=== PATIENT | female | born 1960 | race Caucasian/White ===

== ENCOUNTER 2023-12-14 22:36 | Outpatient (CLI) | payer OTHER, SELFPAY ==
[2023-12-14 19:13] LABS: Basophils # 0.2 K/mm3 (0-0.2); Basophils % 1.4 % (0.1-2.0); Eosinophils # 0.2 K/mm3 (0.0-0.4); Eosinophils % 2.2 % (0.1-12.0); Hemoglobin 14.1 g/dL (12.2-16.2); Lymphocytes # 5.7 K/mm3 (0.7-4.5); Lymphocytes % 50.9 % (10-50); Mean Corpuscular HGB Conc 32.8 g/dL (31.8-35.4); Mean Corpuscular Hemoglobin 32.5 pg (27.0-31.2); Mean Corpuscular Volume 98.9 fl (81-99); Mean Platelet Volume 9.4 fl (7.4-10.4); Monocytes # 0.6 K/mm3 (0.1-1.0); Monocytes % 5.4 % (1.7-9.3); Neutrophils # 4.5 K/mm3 (1.8-7.8); Neutrophils % 40.1 % (37.0-80.0); Platelet Count 397 K/mm3 (142-424); Red Blood Count 4.34 M/mm3 (4.20-5.40); Red Cell Distribution Width 13.1 % (11.5-17.5); White Blood Count 11.2 K/mm3 (4.8-10.8)
[2023-12-14 19:22] LABS: MANUAL DIFFERENTIAL MANUAL DIFFERENTIAL (MANUAL DIFF)
[2023-12-14 19:50] LABS: Chloride 112 mmol/L (98-107); Sodium 142 mmol/L (136-145)
[2023-12-14 19:51] LABS: Potassium 4.2 mmoL/L (3.5-5.1)
[2023-12-14 19:53] LABS: Alanine Aminotransferase 19 U/L (12-78); Albumin Level 4.5 g/dl (3.5-5.0); Albumin/Globulin Ratio 1.7 (1.1-1.8); Alkaline Phosphatase 80 U/L (38-126); Anion Gap 12.2 mEq/L (5-15); Aspartate Amino Transferase 27 U/L (14-36); Bilirubin,Total 0.4 mg/dl (0.2-1.3); Blood Urea Nitrogen 9 mg/dl (7-17); Calcium 9.7 mg/dl (8.4-10.2); Carbon Dioxide 22 mmol/L (22.0-30.0); Chol/HDL Ratio 5.6 (1-3.5); Cholesterol 242 mg/dl (140-200); Estimated Glomerular Filt Rate 73 ml/min (>60); GFR (African American) 88 ML/MIN (>60); Globulin 2.7 g/dL (1.3-3.2); Glucose 90 mg/dl (74-100); HDL Cholesterol 43 mg/dl (40-60); Iron 78 ug/dL (37-170); Total Protein,Serum 7.2 g/dl (6.3-8.2); Triglycerides 204 mg/dl (30-150); VLDL Cholesterol 41 mg/dL (0-40)
[2023-12-14 19:57] LABS: Hemoglobin A1C 5.2 % (4.0-6.0)
[2023-12-14 20:03] LABS: Total Iron Binding Capacity 302 ug/dL (265-497)
[2023-12-14 20:10] LABS: 25-OH Vitamin D, Total 16.1 ng/mL (30-100)
[2023-12-14 20:16] LABS: Eosinophils % 2 % (0-3); Lymphocytes % 56 % (10-50); Monocytes % 5 % (2-9); Neutrophils % 37 % (42-76); Total Cells Counted 100
[2023-12-14 20:18] LABS: Macrocytosis 1+; Platelet Estimate Normal
[2023-12-14 20:25] LABS: Thyroid Stimulating Hormone 3.34 uIU/mL (0.465-4.68)
[2023-12-14 20:29] LABS: Ferritin 48.4 ng/ml (11.1-264)
[2023-12-14 20:59] LABS: Vitamin B12 231 pg/mL (239-931)
[2023-12-14 21:08] LABS: Folate 4.31 ng/mL
[2023-12-16 08:12] LABS: Estradiol <5.0 pg/mL (0.0-54.7); FSH 92.7 mIU/mL (25.8-134.8); LH 46.5 mIU/mL (7.7-58.5)
[2023-12-25 13:10] LABS: Free Testosterone (Direct) 0.6 pg/mL (0.0-4.2); Testosterone, Total, LC/MS 21.4 ng/dL (7.0-40.0)
== END 2023-12-14 23:59 ==
LOC: LAB.DROPOF 22:37
PROVIDERS: PCP Student in an Organized Health Care Education/Training Program; Visit Provider Student in an Organized Health Care Education/Training Program
DX: I10 Essential (primary) hypertension (principal); R53.83 Other fatigue; E55.9 Vitamin D deficiency, unspecified; E53.8 Deficiency of other specified B group vitamins; Z79.899 Other long term (current) drug therapy
CPT/HCPCS: 80053; 80061; 82306; 82607; 82626; 82670; 82728; 82746; 83001; 83002; 83036; 83540; 83550; 84443; 85007; 85025

== ENCOUNTER 2023-12-27 14:08 | Outpatient (CLI) | payer OTHER, SELFPAY ==
--- NOTE | 2023-12-27 14:08 | MM_ITS ---
PROCEDURE INFORMATION: Exam: Bilateral Screening 3D Mammography Exam date and time: 12/27/2023 2:04 PM Age: 63 years old Clinical indication: Screening mammogram TECHNIQUE: Imaging protocol: Bilateral Screening tomosynthesis and 2D mammography including computer-aided detection (CAD) when performed. COMPARISON: MG SCREENING COLBY MAMMOGRAM 12/29/2019 8:12 AM FINDINGS: MAMMOGRAPHY: Breast composition: There are scattered areas of fibroglandular density. Mass: None. Architectural distortion: No new or suspicious architectural distortion. Calcifications: No new or suspicious calcifications are present Asymmetric density: No new or suspicious asymmetric density is present Skin thickening: None. Axillary adenopathy: None. Other findings: Stable postoperative findings bilaterally IMPRESSION: No mammographic evidence of malignancy. Recommend annual screening mammography unless otherwise clinically indicated. ASSESSMENT: BI-RADS category 2: Benign
== END 2023-12-27 23:59 ==
LOC: RAD 14:08
PROVIDERS: PCP Student in an Organized Health Care Education/Training Program; Visit Provider Student in an Organized Health Care Education/Training Program
DX: Z12.31 Encounter for screening mammogram for malignant neoplasm of breast (principal)
CPT/HCPCS: 77063; 77067

== ENCOUNTER 2023-12-28 19:57 | Outpatient (CLI) | payer OTHER, SELFPAY ==
[2023-12-30 11:55] LABS: Homocyst(e)ine 24.8 umol/L (0.0-17.2)
[2024-01-01 17:34] LABS: Intrinsic Factor Abs, Serum 1.1 AU/mL (0.0-1.1)
[2024-01-06 09:40] LABS: Methylmalonic Acid 526 nmol/L (0-378)
== END 2023-12-28 23:59 ==
LOC: LAB.DROPOF 19:57
PROVIDERS: PCP Student in an Organized Health Care Education/Training Program; Visit Provider Student in an Organized Health Care Education/Training Program
DX: E53.8 Deficiency of other specified B group vitamins (principal)
CPT/HCPCS: 83090; 83921; 86340

== ENCOUNTER 2024-01-08 06:39 | Outpatient (CLI) | payer OTHER, SELFPAY ==
--- NOTE | 2024-01-08 07:04 | CT_ITS ---
FINAL REPORT TECHNIQUE: Thin section axial images were obtained through the lungs using a low-dose technique per lung cancer screening protocol. Reconstruction images were obtained using the axial data. Exam was performed using dose reduction technique. CLINICAL HISTORY: lung cancer screening smoker, 1 ppd x 44 years COMPARISON: None FINDINGS: CTDLvol: 2.90 DLP: 96.38 Current smoker 44 pack year history Lungs: There are areas of atelectasis at the left lung base. There is a groundglass nodule in the posterior right upper lobe measuring 10 mm. There is evidence of prior granulomatous disease. Lungs are otherwise normal. Lymph nodes: No thoracic lymphadenopathy. Mediastinum: Heart size is normal. Pleura/pericardium: No pleural or pericardial effusion. Other: No acute abnormality in the upper abdomen. IMPRESSION: 10 mm groundglass nodule posterior right upper lobe. Lung RADS: 2 Recommendation: 12-month follow-up low-dose CT. Reviewed, Interpreted and Dictated by Soila Jane MD Transcribed by Clarisse Ly Authenticated and [facility]
--- NOTE | 2024-01-08 07:15 | CT_ITS ---
APPROVED REPORT Card Decorator: CLINICAL INDICATION Chest Pain TECHNIQUE Image Acquisition: A 128 slice MDCT scanner (NextNinea View) was used for data acquisition. A noncontrast coronary calcium scan was performed. A CT attenuation threshold of 130 Hounsfield units (HU) was used for the detection of calcium in contiguous voxels of 1 sq mm in area to be counted as individual lesions. Bolus tracking in the ascending aorta with a threshold of 180 HU was performed. Immediately afterwards, ECG synchronized cardiac CT was then performed from the cardiac base to apex using retrospective gating with ECG tube current modulation. A total of 85 mL of Isovue 370 mg/mL contrast medium was administered at 5 mL/sec followed by a saline flush using a biphasic injection protocol. A tube voltage of 120 KVp was used. The patient received the following medications prior to the cardiac CT. 0.8 mg of sublingual nitroglycerin The average heart rate at the time of acquisition was 58 bpm and regular. Image Reconstruction Transaxial images were reconstructed at 0.67 mm slide thickness. Data was reviewed interactively on an advanced workstation capable of 2 and 3-dimensional displays in all conventional reconstruction formats, including multiplanar reformations, maximum intensity projections, curved multiplanar reformations, and volume rendered reconstructions. When applicable, selected routine images describing the relevant coronary anatomy and pathology were saved and sent to PACS. Complications None Technical Quality Overall image quality was suboptimal due to significant motion. Coronary artery opacification was adequate. Total DLP (Dose-Length Product) is 1392.3 mGy-cm. The reported value represents the total of one or more individual components during the CT acquisition of this date and at this time, and as such, the same value may appear in more than one CT report depending on the interpreting/reporting physicians. COMPARISON None FINDINGS CT Coronary Calcium Scoring LMA (Left Main Artery) = 0 LAD (Left Anterior Descending) = 0 LCX (Left Coronary Circumflex) = 0 RCA (Right Coronary Artery) = 0 Total Calcium Score = 0 using the AJ-130 method. The interpretation of the calcium heart score is based on the following continuum*: 0 = no calcified plaque detected (risk of coronary artery disease is very low ??? less than 5%) 1-10 = calcium detected in extremely minimal levels (risk of coronary diseases is still low ??? less than 10%) 11-100 = mild levels of plaque detected with certainty (mild or minimal narrowing of heart arteries is likely) 101-400 = definite,at least moderate levels of plaque detected (relatively high risk of a heart attack within 3-5 years) >401-999 = extensive levels of plaque detected (high risk of heart attack, high levels of vascular disease are present, high likelihood of at least one significant coronary narrowing) *The calcium heart score quantifies the burden of coronary calcification/plaque in the coronary arteries. The calcium heart score is not able to evaluate the presence or burden of non-calcified (i.e. soft) plaque. There is no identifiable calcification in the aortic valve, mitral annulus or mitral valve, pericardium, or myocardium. Coronary CT Angiography The coronary arterial system is right dominant. Quantitative Stenosis Grading: Left Main (LM): The left main originates normally from the left sinus of Valsalva. The LM bifurcates into the left anterior descending artery and left circumflex artery. The LM is patent with no evidence of atherosclerosis. Left Anterior Descending (LAD) and Diagonal Branches: The LAD gives off 3 diagonal branches. The LAD and its branches are patent with no evidence of atherosclerosis. There is no evidence of LAD-myocardial bridge. Left Circumflex (LCX) and Obtuse Marginals (OM): The LCX gives off 1 Obtuse Marginal (OM) branch(es). There is significant motion artifact in the mid and distal LCx, but grossly the visualized segments of the LCX and its branches are patent with no evidence of atherosclerosis. Right Coronary Artery (RCA): The RCA originates normally from the right sinus of Valsalva. The RCA gives off a posterior descending artery (PDA) and posterolateral (PL) branches. The RCA and its branches are patent with no evidence of atherosclerosis. Non-Coronary Cardiac Findings: Analysis of the left ventricular (LV) structure and function was performed after 3-D reconstruction of the LV from axial images, with user-corrected automatic contouring for assessment of LV volumes and user-defined reconstruction from oblique planes for measurement of 3-D cardiac structure and function. -The left ventricle systolic function is normal (LVEF 73%) -There is incomplete opacification of the distal left atrial appendage. This likely represents no contrast flow into the region, but true filling defect cannot be entirely ruled out. Two right pulmonary veins and two left pulmonary veins drain normally into the left atrium. -No pericardial thickening or calcification. -Central and branch pulmonary arteries in the [id number] are unremarkable. -Thoracic aorta within the visualized thoracic aortic-branches in the [id number] is unremarkable. Extracardiac Structures No significant extra-cardiac findings. Note, however, that this study is focused on the cardiac findings. IMPRESSION -Suboptimal image quality due to significant motion. -Absence of coronary calcification with an Agatston score = 0 using the AJ-130 method. -No evidence of significant flow-limiting atherosclerosis of the coronary arteries. -CAD-RADS 0. Management recommendations per ACC/AHA guidelines*, as clinically appropriate. *Recommendations: CAD RADS 0: Reassurance. Consider non-atherosclerotic causes of chest pain. CAD RADS 1: Consider non-atherosclerotic causes of chest pain. Consider preventive therapy and risk factor modification. CAD RADS 2: Consider non-atherosclerotic causes of chest pain. Consider preventive therapy and risk factor modification, particularly for patients with nonobstructive plaque in multiple segments. CAD RADS 3: Consider further functional testing. Consider symptom-guided anti-ischemic and preventive pharmacotherapy as well as risk factor modification per published guideline statements. CAD RADS 4A: Consider further functional testing or invasive coronary angiography with revascularization per published guideline statements. Consider symptom-guided anti-ischemic and preventive pharmacotherapy as well as risk factor modification per published guideline statements. CAD RADS 4B: Invasive coronary angiography recommended with revascularization per published guideline statements. Consider symptom-guided anti-ischemic and preventive pharmacotherapy as well as risk factor modification per published guideline statements. CAD RADS 5: Consider invasive angiography and/or viability assessment with revascularization per published guideline statements. Consider symptom-guided anti-ischemic and preventive pharmacotherapy as well as risk factor modification per published guideline statements. CRITICAL RESULT None COMMUNICATION Per this written report The coronary and cardiac findings of this CCTA were reviewed, reported, and signed by Silvestre Briones MD (Senior Front End Engineer) Conclusion Electronically signed by : Hillary Briones MD 01/09/2024 10:50:20
--- NOTE | 2024-01-08 07:49 | CA_ITS ---
APPROVED REPORT EXAM: Comprehensive 2D, Doppler, and color-flow Echocardiogram Wringer Machine Operator: Paige Astorga CRT Ht: 5 ft 0 in Wt: 168lbs BSA: 1.73 BP: 158/88 mmHg Indications: Chest Pain, CAD, Hyperlipidemia, Hypertension/HDD, aneurysm, smoker 2D Dimensions LA Volume 26.90 mL LA Volume Index 15.10 mL/m2 (M/F) 16-34 M-Mode Dimensions RVDd 2.32 cm (0.9-2.6) LA Diam 2.74 cm (1.9-4.0) LVDd 4.60 cm (3.5-5.7) LVDs 2.68 cm (3.5-5.7) IVSd 1.71 cm (0.6-1.1) PWd 0.50 cm (0.6-1.1) EF (Teich) 72.80% FS 41.70% EDV (Teich) 97.30 mL TAPSE 1.08 (<1.7) ESV (Teich) 26.50 mL LV Diastology E Decel Time 200 (160-240 msec) E/A Ratio 1.06 MED A' 7.40 cm/s LAT A' 12.80 cm/s Aortic Valve AI PHT 919.00 ms AO Peak GR. 6.40 mmHg Mitral Valve MV A Velocity 93.0 (40-130 cm/s) E/A Ratio 1.06 Pulmonary Valve PV Peak Velocity 113.0 (50-150 cm/s) Tricuspid Valve TR P. Velocity 213.00 cm/s Left Ventricle The left ventricle is normal size. The left ventricular systolic function is normal. The left ventricular ejection fraction is within the normal range. There is increased LV wall thickness. There is normal LV segmental wall motion. The left ventricular diastolic function is normal. LVEF is 55%. Right Ventricle The right ventricle is normal size. The right ventricular systolic function is normal. Atria The left atrium size is normal. The right atrium size is normal. There is no Doppler evidence of interatrial shunt. Aortic Valve The aortic valve is mildly thickened. There is no aortic valvular stenosis. Mild aortic regurgitation. Mitral Valve The mitral valve is normal in structure. No evidence of mitral valve stenosis. There is no mitral valve regurgitation noted. Tricuspid Valve The tricuspid valve leaflets are thin and pliable. Trace tricuspid regurgitation. There is insufficient TR jet to estimate RVSP. Pulmonic Valve The pulmonary valve is normal in structure. Trace pulmonic regurgitation. Great Vessels The aortic root is normal in size. The ascending aorta is normal in size. IVC is normal in size and collapses >50% with inspiration. Pericardium There is no pericardial effusion. Other Information Study Quality: Fair Conclusion Normal biventricular systolic function. Mild AI. Electronically signed by : Hillary Briones MD 01/10/2024 10:44:29
[2024-01-08 08:33] VITALS: BMI 32.2
[2024-01-08 08:56] VITALS: BP 150/78; PULSE 59; RESP 16; O2SAT 99
[2024-01-08] MEDS: NITROGLYCERIN 0.4MG SL TABLET SL (08:56)
[2024-01-08 09:00] VITALS: BP 136/72; PULSE 60; RESP 16; O2SAT 98
[2024-01-08 09:04] VITALS: BP 141/74; PULSE 60; RESP 16; O2SAT 98
[2024-01-08] MEDS: 0.9 % SODIUM CHLORIDE 50 ML VIAL IV (09:12)
[2024-01-08] MEDS: SODIUM CHLORIDE 0.9% 10ML SYR (RAD ONLY) 10 ML IV (09:12)
[2024-01-08] MEDS: IOPAMIDOL-370 (76%);100ML BOTTLE 85 ML IV (09:12)
== END 2024-01-08 09:15 | disposition home or self-care (01) ==
PROVIDERS: PCP Student in an Organized Health Care Education/Training Program; Visit Provider Student in an Organized Health Care Education/Training Program
DX: F17.210 Nicotine dependence, cigarettes, uncomplicated (principal); Z12.2 Encounter for screening for malignant neoplasm of respiratory organs; I20.89 Other forms of angina pectoris; I10 Essential (primary) hypertension; E78.5 Hyperlipidemia, unspecified; Z82.49 Family history of ischemic heart disease and other diseases of the circulatory system
CPT/HCPCS: 71271; 75571; 75574; 93306; Q9967

== ENCOUNTER 2024-03-14 18:00 | Outpatient (CLI) | payer OTHER, SELFPAY ==
[2024-03-14 18:37] LABS: Basophils # 0.1 K/mm3 (0-0.2); Basophils % 0.8 % (0.1-2.0); Eosinophils # 0.2 K/mm3 (0.0-0.4); Eosinophils % 1.2 % (0.1-12.0); Hematocrit 44.6 % (37.0-47.0); Hemoglobin 14.1 g/dL (12.2-16.2); Lymphocytes # 5.7 K/mm3 (0.7-4.5); Lymphocytes % 36.1 % (10-50); Mean Corpuscular HGB Conc 31.6 g/dL (31.8-35.4); Mean Corpuscular Hemoglobin 32.3 pg (27.0-31.2); Mean Corpuscular Volume 102.4 fl (81-99); Mean Platelet Volume 8.9 fl (7.4-10.4); Monocytes # 0.8 K/mm3 (0.1-1.0); Monocytes % 4.9 % (1.7-9.3); Neutrophils # 9.1 K/mm3 (1.8-7.8); Neutrophils % 57.1 % (37.0-80.0); Platelet Count 365 K/mm3 (142-424); Red Blood Count 4.36 M/mm3 (4.20-5.40); Red Cell Distribution Width 13.6 % (11.5-17.5); White Blood Count 15.9 K/mm3 (4.8-10.8)
[2024-03-14 18:38] LABS: MANUAL DIFFERENTIAL MANUAL DIFFERENTIAL (MANUAL DIFF)
[2024-03-14 18:56] LABS: Alanine Aminotransferase 18 U/L (12-78); Albumin Level 4.7 g/dl (3.5-5.0); Albumin/Globulin Ratio 1.9 (1.1-1.8); Alkaline Phosphatase 69 U/L (38-126); Anion Gap 11.9 mEq/L (5-15); Aspartate Amino Transferase 26 U/L (14-36); Bilirubin,Total 0.5 mg/dl (0.2-1.3); Blood Urea Nitrogen 12 mg/dl (7-17); Calcium 9.8 mg/dl (8.4-10.2); Carbon Dioxide 22 mmol/L (22.0-30.0); Chloride 111 mmol/L (98-107); Chol/HDL Ratio 4.9 (1-3.5); Cholesterol 312 mg/dl (140-200); Estimated Glomerular Filt Rate 63 ml/min (>60); GFR (African American) 77 ML/MIN (>60); Globulin 2.5 g/dL (1.3-3.2); Glucose 95 mg/dl (74-100); HDL Cholesterol 64 mg/dl (40-60); Potassium 3.9 mmoL/L (3.5-5.1); Sodium 141 mmol/L (136-145); Total Protein,Serum 7.2 g/dl (6.3-8.2); Triglycerides 291 mg/dl (30-150); VLDL Cholesterol 58 mg/dL (0-40)
[2024-03-14 19:04] LABS: Hemoglobin A1C 5.7 % (4.0-6.0)
[2024-03-14 19:25] LABS: 25-OH Vitamin D, Total 70.3 ng/mL (30-100)
[2024-03-14 20:00] LABS: Folate > 20.00 ng/mL; Vitamin B12 558 pg/mL (239-931)
[2024-03-14 20:06] LABS: Eosinophils % 5 % (0-3); Lymphocytes % 34 % (10-50); Macrocytosis 1+; Monocytes % 3 % (2-9); Neutrophils % 58 % (42-76); Platelet Estimate Normal; Total Cells Counted 100
[2024-03-14 20:29] LABS: Iron 119 ug/dL (37-170); Total Iron Binding Capacity 306 ug/dL (265-497)
[2024-03-14 20:42] LABS: Ferritin 58.1 ng/ml (11.1-264)
== END 2024-03-14 23:59 | disposition home or self-care (01) ==
LOC: LAB.DROPOF 03-15 09:12
PROVIDERS: PCP Student in an Organized Health Care Education/Training Program; Visit Provider Student in an Organized Health Care Education/Training Program
DX: I10 Essential (primary) hypertension (principal); E53.8 Deficiency of other specified B group vitamins; E55.9 Vitamin D deficiency, unspecified; E78.5 Hyperlipidemia, unspecified; E66.09 Other obesity due to excess calories; Z68.32 Body mass index [BMI] 32.0-32.9, adult; Z78.9 Other specified health status
CPT/HCPCS: 80053; 80061; 82306; 82607; 82728; 82746; 83036; 83540; 83550; 85007; 85025

== ENCOUNTER 2024-03-21 06:39 | Day surgery (SDC) | payer OTHER, SELFPAY ==
[2024-03-19 13:46] VITALS: BMI 33.2
--- NOTE | 2024-03-21 06:50 | HMH.SCOPE ---
Procedure: Date: 03/21/24 Patient Date of :: 1960 Procedure Performed:: Total colonoscopy to terminal ileum Indications:: Patient is a 63-year-old female who presents for colonoscopy. She has undergone previous colonoscopy and states that she is past due. She has a family history of colon cancer in her extended family. Her paternal grandfather and several members on that side of her family have had colon cancer. Previous colonoscopies have been in [place]. She is also previously had hemorrhoid surgery by Dr. Arun De La Fuente. She states that she was told by him that her lower colon is lazy and he had considered possible resection. Performing Provider:: Cedric Gonzalez MD Referring Provider:: Dione Nunes Sedation:: MAC sedation Procedure:: Patient history was obtained and appropriate physical examination was performed. Patient's medications and allergies were reviewed. Informed consent was obtained after explaining the benefits, alternatives, and risks of the procedure including, but not limited to, bleeding, perforation, missed lesions, and adverse reaction to anesthesia medications. Patient was transported to endoscopy procedure room. Patient was connected to monitoring devices. Throughout the procedure the patient's blood pressure, pulse, and oxygen saturations were monitored continuously. Patient identification and planned procedure were verified by the staff. Patient was positioned in lateral decubitus position. Digital anorectal exam was performed. Variable stiffness Olympus colonoscope was inserted and advanced under direct visualization to the cecum. Adequacy of the colonic preparation was noted. The colonoscope was advanced a short distance into the terminal ileum. The colonoscope was then slowly withdrawn while carefully examining the color, texture, anatomy, and integrity of the mucosoa circumferentially. Within the rectum retroflexion was performed. Colonoscope was then withdrawn. . Impression: Colonic preparation was good. There was some minor redundancy of the sigmoid colon. There were no obvious polyps, masses, or diverticuli. In the distal rectum there was visible submucosal staple line likely from previous PPH hemorrhoidectomy. . Findings:: Findings consistent with previous PPH hemorrhoidopexy Minimal internal hemorrhoids Recommendations:: Given family history 5 years repeat Complications:: None immediate Estimated blood obtained (mL): 0 Colonoscopy Component Colonoscopy Component Was a colonoscopy performed during today's procedure?: Yes Recommended follow up colonoscopy of at least 10 years?: No If no, follow up colonoscopy recommended in ___ years?: 5 Reason for not recommending >/= 10 yr follow-up interval?: see above
[2024-03-21 07:00] VITALS: BP 139/84; PULSE 70; RESP 18; TEMP 36.2; O2SAT 98
[2024-03-21] MEDS: LACTATED RINGERS 1000ML 1,000 ML 25 ML IV (07:13)
[2024-03-21 07:25] VITALS: O2SAT 98
--- NOTE | 2024-03-21 07:42 | P.PNANES_ITS ---
[facility] Disclaimer: The information contained in this section may have been updated after the patient was seen, as this information can be updated by other users. Medical History HTN (hypertension) HLD (hyperlipidemia) Family history of coronary artery disease Atypical angina Hemorrhoids Nerve pain Detachment of triangular fibrocartilage Foot fracture, left Colon polyps TFCC (triangular fibrocartilage complex) injury Anxiety and depression Migraines Aneurysm Mass of ovary Abnormal Pap smear of cervix Surgical History Hx of tonsillectomy H/O dilation and curettage History of endoscopic sinus surgery H/O blepharoplasty History of hysterectomy H/O removal of cyst H/O right breast biopsy H/O left breast biopsy S/P cervical spinal fusion H/O hemorrhoidectomy Family History Other Anemia Cancer Coronary artery disease Heart attack Hyperlipidemia Hypertension Stroke Thyroid disorder Social History (Updated 03/21/24 @ 07:02 by Portia Sarabia RN) Smoking Status: Current every day smoker tobacco type: cigarettes packs per day: 1 smoking status start date: 1979 smoked: 44 alcohol intake: current alcohol intake frequency: holidays/special occasions only substance use type: denies use current occupational status: disabled Travel in the last 8 weeks: None caffeine: Yes [facility] Anesthesia Checklist Patient Identification Patient Identification: Arm Band Structural Data Admitted From: Home Planned Operative Procedure/s: Colonoscopy Consent for Planned Operative Procedure(s) Verified: Yes Verified Documents: Surgical Consent and History and Physical NPO Status Verified Time NPO: 00:00 Additional verifications Anesthesia Reactions: No Hx Blood Transfusions: No Blood Transfusion Reaction: No Airway Assessment Mallampati Score:: Class II C-Spine Mobility Assessed: Yes TMJ Mobility Assessed: Yes Dentition: Dentures-good fit Neurological Assessment Level of Consciousness: Awake and Alert Anesthesia Plan Anesthesia Risk discussed: Yes Anesthesia Plan: Verified ASA Class: II Anesthesia Type: MAC
[2024-03-21 07:55] VITALS: BP 120/61; PULSE 62; RESP 18; TEMP 36.2; O2SAT 97
[2024-03-21 08:05] VITALS: BP 128/85; PULSE 68; RESP 18; O2SAT 97
[2024-03-21 08:15] VITALS: BP 122/68; PULSE 61; RESP 18; O2SAT 97
[2024-03-21 08:28] VITALS: BP 127/64; PULSE 61; RESP 18; O2SAT 97
== END 2024-03-21 08:35 | disposition home or self-care (01) ==
PROVIDERS: PCP Student in an Organized Health Care Education/Training Program; Visit Provider Surgery
PROC: 0DJD8ZZ Inspection of Lower Intestinal Tract, Via Natural or Artificial Opening Endoscopic (ICD-10-PCS; CPT 45378; principal; 2024-03-21 07:30)
DX: Z12.11 Encounter for screening for malignant neoplasm of colon (principal); Z86.010 Personal history of colon polyps; Z80.0 Family history of malignant neoplasm of digestive organs; K64.8 Other hemorrhoids
CPT/HCPCS: 45378

== ENCOUNTER 2024-03-25 08:48 | Outpatient (CLI) | payer OTHER, SELFPAY ==
--- NOTE | 2024-03-25 08:48 | US_ITS ---
PROCEDURE INFORMATION: Exam: US Left Breast, Complete US Right Breast, Complete Exam date and time: 03/25/2024 9:31 AM Age: 63 years old Clinical indication: : Soreness and lump, or swelling; right TECHNIQUE: Imaging protocol: Complete ultrasound of all four quadrants of the left breast and the retroareolar regions, including ultrasound of the axilla when performed. Complete ultrasound of all four quadrants of the right breast and the retroareolar regions, including ultrasound of the axilla when performed. COMPARISON: MG MM DIG SCREENING MAMM BI W/CAD 12/27/2023 2:04 PM FINDINGS: ULTRASOUND: Breast ultrasound findings: Sonographic images of the right breast including the retroareolar region, all 4 quadrants and the axilla do not demonstrate any solid or cystic masses. Persists replaced over a prominent fat lobule in the region of palpable concern in the right 2 o'clock axis 8 cm from the nipple. It is less likely but possible the finding reflects a benign lipoma. No architectural distortion or acoustical shadowing. No skin thickening or axillary adenopathy. Review of the patient's most recent mammogram dated 12/27/2023 did not demonstrate any suspicious findings IMPRESSION: Palpable abnormality in the right breast corresponds both mammographically and sonographically to normal adipose tissue structures versus a possible benign lipoma. There is no mammographic evidence of malignancy. Further evaluation of a palpable abnormality should be based on clinical grounds regardless of radiographic findings or lack thereof. Annual mammographic screening is recommended unless otherwise clinically indicated. ASSESSMENT: BI-RADS Category 2: Benign.
== END 2024-03-25 23:59 | disposition home or self-care (01) ==
LOC: RAD 08:48
PROVIDERS: PCP Student in an Organized Health Care Education/Training Program; Visit Provider Student in an Organized Health Care Education/Training Program
DX: N63.10 Unspecified lump in the right breast, unspecified quadrant (principal); N63.20 Unspecified lump in the left breast, unspecified quadrant
CPT/HCPCS: 76641

== ENCOUNTER → 2024-05-29 08:54 | Outpatient (CLI) | payer OTHER, SELFPAY | LOC: SL 08:57 | PROVIDERS: PCP Student in an Organized Health Care Education/Training Program; Visit Provider Student in an Organized Health Care Education/Training Program | DX: G47.33 Obstructive sleep apnea (adult) (pediatric) (principal) | CPT/HCPCS: G0399 ==

== ENCOUNTER 2024-08-26 11:55 | Outpatient (CLI) | payer OTHER, SELFPAY ==
[2024-08-26 12:54] VITALS: BMI 31.8
--- NOTE | 2024-08-26 12:55 | ECG_ITS ---
APPROVED REPORT Exam: Resting ECG HR:74 bpm ECG Measurements Heart Rate 74 AXES MO 94 P -73 QRSd 83 QRS 43 QT 398 T 43 QTc [address] DEVIATION AND MODERATE T-WAVE ABNORMALITY, CONSIDER ANTERIOR ISCHEMIA [-0.1+ mV T-WAVE IN V3/V4] ABNORMAL ECG UNCONFIRMED REPORT Electronically signed by : Giuseppe Griffiths MD 08/27/2024 09:21:08
[2024-08-26 13:36] LABS: Basophils # 0.1 K/mm3 (0-0.2); Eosinophils # 0.2 K/mm3 (0.0-0.4); Eosinophils % 2.5 % (0.1-12.0); Hematocrit 39.4 % (37.0-47.0); Hemoglobin 13.8 g/dL (12.2-16.2); Lymphocytes # 4.4 K/mm3 (0.7-4.5); Lymphocytes % 51.2 % (10-50); Mean Corpuscular Hemoglobin 33.2 pg (27.0-31.2); Mean Corpuscular Volume 94.7 fl (81-99); Mean Platelet Volume 8.8 fl (7.4-10.4); Monocytes # 0.5 K/mm3 (0.1-1.0); Monocytes % 5.5 % (1.7-9.3); Neutrophils # 3.5 K/mm3 (1.8-7.8); Neutrophils % 39.8 % (37.0-80.0); Platelet Count 350 K/mm3 (142-424); Red Blood Count 4.16 M/mm3 (4.20-5.40); Red Cell Distribution Width 13.6 % (11.5-17.5); White Blood Count 8.7 K/mm3 (4.8-10.8)
[2024-08-26 13:39] LABS: MANUAL DIFFERENTIAL MANUAL DIFFERENTIAL (MANUAL DIFF)
[2024-08-26 13:50] LABS: Anion Gap 7.8 mEq/L (5-15); Blood Urea Nitrogen 8 mg/dl (7-17); Calcium 9.4 mg/dl (8.4-10.2); Carbon Dioxide 23 mmol/L (22.0-30.0); Chloride 110 mmol/L (98-107); Creatinine Clearance Estimated 67 mL/min (50-200); Estimated Glomerular Filt Rate 56 ml/min (>60); GFR (African American) 68 ML/MIN (>60); Glucose 102 mg/dl (74-100); Potassium 3.8 mmoL/L (3.5-5.1); Sodium 137 mmol/L (136-145)
[2024-08-26 14:44] LABS: Eosinophils % 1 % (0-3); Lymphocytes % 56 % (10-50); Monocytes % 13 % (2-9); Neutrophils % 30 % (42-76); Platelet Estimate Normal; RBC Morphology Normal; Total Cells Counted 100
== END 2024-08-26 23:59 | disposition home or self-care (01) ==
LOC: PREOP 11:58
PROVIDERS: Nurse Anesthetist, Certified Registered; Visit Provider Student in an Organized Health Care Education/Training Program
DX: Z01.810 Encounter for preprocedural cardiovascular examination (principal); I49.8 Other specified cardiac arrhythmias; R94.31 Abnormal electrocardiogram [ECG] [EKG]
CPT/HCPCS: 80048; 85007; 85025; 85027; 93005

== ENCOUNTER 2024-09-02 07:29 | Day surgery (SDC) | payer OTHER, SELFPAY ==
[2024-08-26 12:52] VITALS: BMI 31.8
[2024-09-02 08:11] VITALS: BP 125/67; PULSE 67; RESP 17; TEMP 36.3; O2SAT 98
[2024-09-02] MEDS: LACTATED RINGERS 1000ML 1,000 ML 25 ML IV (08:20)
--- NOTE | 2024-09-02 08:47 | ECG_ITS ---
APPROVED REPORT Exam: Resting ECG HR:60 bpm ECG Measurements Heart Rate 60 AXES SD 172 P 53 QRSd 90 QRS 12 QT 434 T 40 QTc 434 Conclusion SINUS RHYTHM NORMAL ECG UNCONFIRMED REPORT Electronically signed by : Giuseppe Griffiths MD 09/03/2024 08:20:12
--- NOTE | 2024-09-02 08:52 | P.PNANES_ITS ---
[facility] Disclaimer: The information contained in this section may have been updated after the patient was seen, as this information can be updated by other users. Medical History TREY (obstructive sleep apnea) Brain aneurysm HTN (hypertension) HLD (hyperlipidemia) Family history of coronary artery disease Atypical angina Hemorrhoids Nerve pain Detachment of triangular fibrocartilage Foot fracture, left Colon polyps TFCC (triangular fibrocartilage complex) injury Anxiety and depression Migraines Aneurysm Mass of ovary Abnormal Pap smear of cervix Surgical History History of foot surgery History of surgery on right wrist Hx of tonsillectomy H/O dilation and curettage History of endoscopic sinus surgery H/O blepharoplasty History of hysterectomy H/O removal of cyst H/O right breast biopsy H/O left breast biopsy S/P cervical spinal fusion H/O hemorrhoidectomy Family History Other Anemia Cancer Coronary artery disease Heart attack Hyperlipidemia Hypertension Stroke Thyroid disorder Social History Smoking Status: Current every day smoker tobacco type: cigarettes packs per day: 1 smoking status start date: 1979 smoked: 44 alcohol intake: never substance use type: denies use current occupational status: disabled Travel in the last 8 weeks: Inside the [place] caffeine: Yes [facility] Anesthesia Checklist Patient Identification Patient Identification: Arm Band Structural Data Admitted From: Home Planned Operative Procedure/s: Drug Induced Sleep Endoscopy Consent for Planned Operative Procedure(s) Verified: Yes Verified Documents: Surgical Consent and History and Physical NPO Status Verified Time NPO: 00:00 Additional verifications Anesthesia Reactions: No Hx Blood Transfusions: No Blood Transfusion Reaction: No Airway Assessment Mallampati Score:: Class II C-Spine Mobility Assessed: Yes (Limited ROM d/t neck surgeries) TMJ Mobility Assessed: Yes Dentition: Edentulous Neurological Assessment Level of Consciousness: Awake, Alert and Appropriate Anesthesia Plan Anesthesia Risk discussed: Yes Anesthesia Plan: Verified ASA Class: II Anesthesia Type: MAC
[2024-09-02] MEDS: OXYMETAZOLINE NASAL SPRAY 0.05% 15ML 15 ML NS (08:59)
[2024-09-02] MEDS: LIDOCAINE 1% 20ML MDV 20 ML (08:59)
[2024-09-02 09:14] VITALS: BP 131/72; PULSE 69; RESP 18; TEMP 36.2; O2SAT 97
--- NOTE | 2024-09-02 09:14 | EXP.OP.NOTE ---
Date of procedure: 09/02/24 Pre-op Diagnosis:: obstructive sleep apnea Post-op Diagnosis:: same Procedure performed:: drug induced sleep endoscopy Surgeon:: Jass Rosado MD Anesthesia: MAC Estimated blood loss (mL): 0 Operative findings:: good candidate for hypoglossal nerve stimulator Operative note:: The patient was brought to the OR, laid in the supine position, we slowly uptitrated propofol drip until patient was snoring and intermittently apneic. Less than a cc of lidocaine mixed with Afrin was instilled into the patient's nares. Flexible fiberoptic scope was then inserted through her left nare. Patient had anterior posterior collapse of her palate with no significant lateral or concentric collapse. She had no significant lateral oropharyngeal wall collapse. She had severe anterior posterior collapse of her base of tongue and epiglottis which was significantly improved with jaw thrust remover. Scope was then removed and patient turned back over to anesthesia to be awoken. Condition: stable Disposition: PACU Complications:: none
[2024-09-02 09:24] VITALS: BP 127/72; PULSE 62; RESP 18; O2SAT 96
[2024-09-02 09:34] VITALS: BP 119/63; PULSE 60; RESP 18; O2SAT 96
[2024-09-02 09:44] VITALS: BP 121/71; PULSE 61; RESP 18; O2SAT 97
== END 2024-09-02 09:44 | disposition home or self-care (01) ==
PROVIDERS: PCP Student in an Organized Health Care Education/Training Program; Visit Provider Student in an Organized Health Care Education/Training Program
PROC: (CPT 42975; principal; 2024-09-02 09:00)
DX: G47.33 Obstructive sleep apnea (adult) (pediatric) (principal)
CPT/HCPCS: 42975; 93005; J7120

== ENCOUNTER 2024-09-12 11:05 | Outpatient (CLI) | payer OTHER, SELFPAY ==
[2024-09-12 17:52] LABS: MANUAL DIFFERENTIAL MANUAL DIFFERENTIAL (MANUAL DIFF)
[2024-09-12 18:30] LABS: Basophils # 0.1 K/mm3 (0-0.2); Basophils % 1.2 % (0.1-2.0); Eosinophils # 0.2 K/mm3 (0.0-0.4); Eosinophils % 1.5 % (0.1-12.0); Hematocrit 44.1 % (37.0-47.0); Hemoglobin 14.3 g/dL (12.2-16.2); Lymphocytes # 5.5 K/mm3 (0.7-4.5); Lymphocytes % 49.9 % (10-50); Mean Corpuscular HGB Conc 32.4 g/dL (31.8-35.4); Mean Corpuscular Hemoglobin 31.6 pg (27.0-31.2); Mean Corpuscular Volume 97.6 fl (81-99); Mean Platelet Volume 9.7 fl (7.4-10.4); Monocytes # 0.5 K/mm3 (0.1-1.0); Monocytes % 4.1 % (1.7-9.3); Neutrophils # 4.8 K/mm3 (1.8-7.8); Neutrophils % 43.3 % (37.0-80.0); Platelet Count 363 K/mm3 (142-424); Red Blood Count 4.52 M/mm3 (4.20-5.40); Red Cell Distribution Width 13.1 % (11.5-17.5)
[2024-09-12 18:45] LABS: Alanine Aminotransferase 10 U/L (12-78); Albumin Level 4.8 g/dl (3.5-5.0); Alkaline Phosphatase 59 U/L (38-126); Anion Gap 16.2 mEq/L (5-15); Aspartate Amino Transferase 19 U/L (14-36); Bilirubin,Total 0.5 mg/dl (0.2-1.3); Blood Urea Nitrogen 9 mg/dl (7-17); Calcium 9.7 mg/dl (8.4-10.2); Carbon Dioxide 18 mmol/L (22.0-30.0); Chloride 112 mmol/L (98-107); Chol/HDL Ratio 4.3 (1-3.5); Cholesterol 229 mg/dl (140-200); Estimated Glomerular Filt Rate 63 ml/min (>60); GFR (African American) 77 ML/MIN (>60); Globulin 2.4 g/dL (1.3-3.2); Glucose 87 mg/dl (74-100); HDL Cholesterol 53 mg/dl (40-60); Potassium 4.2 mmoL/L (3.5-5.1); Sodium 142 mmol/L (136-145); Total Protein,Serum 7.2 g/dl (6.3-8.2); Triglycerides 215 mg/dl (30-150); VLDL Cholesterol 43 mg/dL (0-40)
[2024-09-12 18:56] LABS: Direct LDL Cholesterol 137.09 mg/dL (100-129)
[2024-09-12 19:02] LABS: 25-OH Vitamin D, Total 45.1 ng/mL (30-100)
[2024-09-12 19:33] LABS: Eosinophils % 3 % (0-3); Lymphocytes % 51 % (10-50); Monocytes % 5 % (2-9); Neutrophils % 41 % (42-76); Platelet Estimate Normal; RBC Morphology Normal; Total Cells Counted 100
[2024-09-12 19:34] LABS: Vitamin B12 573 pg/mL (239-931)
[2024-09-12 20:38] LABS: Iron 86 ug/dL (37-170)
[2024-09-12 20:47] LABS: Total Iron Binding Capacity 312 ug/dL (265-497)
[2024-09-12 21:15] LABS: Ferritin 52.6 ng/ml (11.1-264)
[2024-09-12 22:57] LABS: HIV (1&2) Antibody Rapid NONREACTIVE (NONREACTIVE)
[2024-09-14 10:10] LABS: HCV Ab Non Reactive (Non Reactive)
== END 2024-09-12 23:59 | disposition home or self-care (01) ==
LOC: LAB.DROPOF 09-15 11:05
PROVIDERS: PCP Student in an Organized Health Care Education/Training Program; Visit Provider Student in an Organized Health Care Education/Training Program
DX: E78.00 Pure hypercholesterolemia, unspecified (principal); E66.09 Other obesity due to excess calories; Z68.32 Body mass index [BMI] 32.0-32.9, adult; E53.8 Deficiency of other specified B group vitamins; Z11.59 Encounter for screening for other viral diseases; E55.9 Vitamin D deficiency, unspecified; Z11.4 Encounter for screening for human immunodeficiency virus [HIV]
CPT/HCPCS: 80053; 80061; 82306; 82607; 82728; 83540; 83550; 85007; 85014; 85018; 85048; 85049; 86803; 87389

== ENCOUNTER 2025-06-11 13:28 | Emergency (ER) | payer MEDICARE, SELFPAY ==
--- OUTSIDE RECORDS SUMMARY | 2019-01-08 11:13 | XMS_ITS | Encounter Summary ---
Author Organization [facility] Address [address] [place] [address] Care Team Providers Care Travel Trailer Components Assembler Name Role Phone Rasheeda Howard PA-C Primary Care Provider [phone] Reason for Visit * Diagnostic Imaging (Routine) - Closed Specialty Diagnoses / Procedures Referred By Contac t Referred To Contact Radiology Diagnoses Left tubo-ovarian mass Procedures US Non-OB Transvaginal Estefania Jackson MD [address] [facility] [address] [place] [address] Phone: tel: fax: [facility] [address] [facility] [address] [place] [address] Phone: tel: fax: Referral ID Status Reason Start Date Expiration Date Visits Re quested Visits Authorized [id number] Closed 01/08/2019 01/08/2020 1 1 Encounter Details Date Type Department Care Team (Latest Contact Info) Description 01/08/2019 10:13 AM EST Hospital Encounter [facility] [address] [facility] [address] [place] [address] Left tubo-ovarian mass Social History Tobacco Use Types Packs/Day Years Used Date Smoking Tobacco: Every Day Cigarettes Alcohol Use Standard Drinks/Week Comments Yes 0 (1 standard drink = 0.6 oz pur e alcohol) Abuse Screen Answer Date Recorded Unsafe at Home or Work/School Not on file Feels Threatened by Someone? Not on file 07/2023 Does Anyone Keep You from Co ntacting Others or Doint Things Outside the Home? Not on file 08/20/2023 Physical Sign of Abuse Present Not on file 1 Housing Stability Answer Date Recorded Current Living Arrangements Not on file 07/2023 Potentially Unsafe Housing Conditions Not on tiesha e 08/20/2023 Family and Community Support Answer Marcel e Recorded Help with Day-to-Day Activities Not on file 08/20/2023 Lonely or Isolated Not on file 08/20/2023 Employment Answer Date Recorded Do you want help finding or keeping work or a osmel b? Not on file 08/20/2023 Disabilities Answer Date Recorded Concentrating, Remembering, or Making Decisions Difficulty Not on file 08/20/2023 Doing Errands Independently Difficulty Not on fi le 08/20/2023 Education Answer Date Recorded Help with school or training? Not on file Preferred Language Not on file 08/20/2023 Comments Unknown Sex and Gender Information Value Date Recorded Sex Assigned at Not on file Legal Sex Female 10:03 AM EDT Gender Identity Not on file Sexual Orientation Not on file documented as of this encounter Plan of Treatment Not on file documented as of this encounter Procedures Procedure Name Priority Date/Time Associated Diagnosis Comments US NON-OB TRANSVAGINAL Routine 01/08/2019 10:13 AM EST Left tubo-ovarian mass documented in this encounter Results * US Non-OB Transvaginal (01/08/2019 10:13 AM EST) Narrative SYSTEMGENERATED, DOCUMENTATION - 01/08/2019 10:13 AM EST This procedure was auto-finalized with no dictation required. us Estefania Jackson MD IMG US ORDERABLES Final Resu lt documented in this encounter Visit Diagnoses Diagnosis Left tubo-ovarian mass documented in this encounter Care Teams Travel Trailer Components Assembler Relationship Specialty Start Date End Date Rasheeda Howard PA-C [address] [place] [id number] PCP - General Physician Informatics Coordinator 12/24/18 documented as of this encounter
--- OUTSIDE RECORDS SUMMARY | 2025-04-21 04:30 | XMS_ITS ---
Author Organization [facility] Address [address] [place] [address] Care Team Providers Care Binder Stripper Hand Name Role Phone Garrison Ovalles Primary Care Provider [phone] Bk Ferreira Unavailable [phone] Nadir Waite Unavailable [phone] Allergies No Known Allergies REASON FOR VISIT OFFICE VISIT Medications Medication SIG (Take, Route, Frequency, Duration) Notes Start Date End Date Status Baclofen 20 MG 1 tablet Orally twice a day; Duration: 30 days DUPLICATE Not-Taking Zanaflex 4 MG TAKE 1 TABLET BY MOUTH THREE TIMES DAILY NEEDED Orally Three times a day; Duration: 30 days Not-Taking Topamax 100 MG 1 tablet Orally Twice a day DUPLICATE Not-Taking Medrol 4 MG as directed Orally Not-Taking Topamax 100 MG 1 tablet Orally Twice a day; Duration: 30 DUPLICATE Not-Taking Venlafaxine HCl ER 225 MG TAKE 1 CAPSULE BY MOUTH EVERY DAY Orally Once a day; Duration: 90 days Active Dantrolene Sodium 50 MG 1 capsule Orally Once a day; Duration: 90 days Active Medrol 4 MG as directed Orally TITRATE DOWN; Duration: 6 days 03/10/2021 Not-Taking Baclofen 10 MG 1 tablet with food or milk Orally bid DUPLICATE Not-Taking Topiramate 200 MG TAKE 1 TABLET BY MOUTH TWICE DAILY Orally Twice a day; Duration: 90 days Active levETIRAcetam 500 mg TAKE ONE TABLET BY MOUTH EVERY 12 HOURS; Duration: 30 Active Losartan Potassium 100 MG 1 tablet Orally Once a day; Duration: 30 day(s) Active Metoprolol Tartrate 50 MG 1 tablet with food Orally Twice a day; Duration: 30 day(s) Active Zanaflex 4 MG TAKE 1 TABLET BY MOUTH THREE TIMES DAILY NEEDED Active Baclofen 20 MG TAKE 1 TABLET BY MOUTH TWICE A DAY 08/28/2018 Active traMADol HCl 50 MG 1 tablet Orally EVERY SIX HOURS 04/10/2025 Active Social History Tobacco use other than smoking: Question Answer Notes Are you an other tobacco user? No Vital Signs Blood pressure systolic 149 mm Hg 04/21/20 25 Blood pressure diastolic 87 mm Hg 025 Heart Rate 66 /min 04/21/2025 Height 60 in 04/21/2025 Weight 160 lbs 04/21/2025 BMI 31.24 kg/m2 04/21/2025 Oximetry 96 % 04/21/2025 Encounters Encounter Location Date Provider Diagnosis [facility] [address] [place] [address] 04/21/2025 Bk Ferreira Spondylosis without myelopathy or radiculopathy, cervical region M47.812 Assessments Encounter Date Diagnosis (ICD Code) Assessment Notes Treatment Notes Treatment Clinical Notes Section Notes 04/21/2025 Spondylosis without myelopathy or radiculopathy, cervical region (ICD-10 - M47.812) Plan Of Treatment Medication Medication Name Sig Start Date Stop Date Notes traMADol HCl 50 MG 1 tablet Orally EVERY SIX HOURS 025 Next Appt Details Provider Name:Bk gerardo, 06/30/2025 08:30:00 AM, [address] [place], [address], Progress Notes * ROSA ELENAPushpaOB:1960 (64 yo F)Acc No.[id number]:04/21/2025 Progress Notes Patient: Desirae BAXTER Provider: Luiza Ferreira MD :1960 A ge:64 Y S ex:Female Date:04/21/2025 Address:[address] [place], [place] [id number] Pcp:Garrison Ovalles Subjective: * Chief Complaints: * O FFICE VISIT * HPI: P ain Management: Assessment and followup F ollowup plan documented : Y es. I nterim History: Patient presents for a follow up for chronic pain management. On the last visit, patient had a left sacroiliac joint injection o n 5/20/25. According to post procedural pain diary and discussion, patient reports 98% relief during the anesthetic phase and greater than 98% relief and decreased symptoms for ongoing. Patient's CC: left hip pain, which they score a 0/10 NRS at rest that increases to 8/10 NRS with activity. Pt reports that standing and moving a certain way i ncreases this pain. Pt reports that resting helps reduce this pain. Pt reports no changes in health history and denies any changes in medications from outside providers. Denies adverse effects to prescribed medication. Reports taking medications as prescribed. No refills were provided today, dates verified with ROLANDO. Pt to continue tramadol. Last UDS was reviewed and was compliant for prescribed medication. Patient has benefited from Interventional Treatment in the past regarding their pain. They have not scheduled treatment at this time. We will follow up accordingly and continue medication management. Based on the physical exam and clinical findings, we will schedule pt will call as needed. Goal of treatment maintain left hip pain. Scribe-SA. * ROS: S EE INTAKE FORM General/Constitutional Denies Change in appetite. Denies Fatigue. Denies Sleep disturbance. Denies Weight gain. Denies Weight loss. Endocrine Denies Difficulty sleeping. Denies Dizziness. Denies Excessive sweating. Denies Excessive thirst. Denies Frequent urination. . Denies Weakness. Respiratory Denies Irregular Breathing pattern. Denies Chest pain. Denies Cough. Denies Hemoptysis. Denies Pain with inspiration. Denies Shortness of breath. Denies Shortness of breath at rest. Denies Shortness of breath with exertion. Cardiovascular Denies Chest pain. Denies Chest pain at rest. Denies Chest pain with exertion. Denies Claudication. Denies Dizziness. Denies Dyspnea on exertion. Denies Fluid accumulation in the legs. Denies Irregular heartbeat. Denies Orthopnea. Denies Palpitations. Denies Shortness of breath. Denies Weakness. Denies Weight gain. Gastrointestinal Denies Abdominal pain. Denies Blood in stool. Denies Change in bowel habits. Denies Constipation. Denies Decreased appetite. Denies Diarrhea. Denies Difficulty swallowing. Hematology Denies Easy bruising. Denies Fever. Denies Groin mass. Denies Prolonged bleeding. Denies Swollen glands. Genitourinary Denies Abdominal pain/swelling. Denies Blood in urine. Denies Difficulty urinating. Denies Frequent urination. Denies Painful urination. Musculoskeletal Denies Joint stiffness. Denies Leg cramps. Denies Muscle aches. Denies Pain in shoulder(s). Admits Painful joints. Denies Swollen joints. Denies Weakness. Peripheral Vascular Denies Absent pulses in hands. Denies Absent pulses in feet. Denies Blanching of skin. Denies Cold extremities. Denies Decreased sensation in extremities. Denies Pain/cramping in legs after exertion. . Denies Ulceration of feet. Neurologic Denies Balance difficulty. Denies Dizziness. Denies Fainting. Denies Gait abnormality. Denies Headache. . Denies Loss of strength. Denies Loss of use of extremity. Denies Memory loss. Denies Paralysis. Denies Seizures. . Psychiatric Denies Depressed Mood Denies Anxiety. Denies Difficulty sleeping. Denies Mental or Physical abuse. Denies Suicidal thoughts. * Medical History: * Surgical History: H ysterectomy Oopherectomy * Hospitalization/Major Diagno stic Procedure: D enies Past Hospitalization * Family History: M other: alive, diagnosed with Hypertension. F ather: unknown, diagnosed with Hypertension. M aternal Grandmother: . M aternal Grandfather: . P aternal Grandmother: . P aternal Grandfather: . * Social History: T obacco Use: T obacco Use/Smoking A re you a: former smoker. T obacco use other than smoking A re you an other tobacco user? N o. D rugs/Alcohol: D rugs H ave you used drugs other than those for medical reasons in the past 12 months??No. A lcohol Screen (Audit-C) D id you have a drink containing alcohol in the past year?: No, Points: 0, Interpretation: Negative. W eekly Consumption A mount of Beer N one,?Glasses of Wine N one, N umber of mixed drinks N one. M iscellaneous: Cyndi marc: yes. Marital status: . H ousehold: H ousehold M arital status: d ivorced, L evel of education: f inished college.? * Medications: T akinglevETIRAcetam 500 mg Tablet TAKE ONE TABLET BY MOUTH EVERY 12 HOURS Losartan Potassium 100 MG Tablet 1 tablet Orally Once a day Metoprolol Tartrate 50 MG Tablet 1 tablet with food Orally Twice a day Zanaflex 4 MG Tablet TAKE 1 TABLET BY MOUTH THREE TIMES DAILY NEEDED Baclofen 20 MG Tablet TAKE 1 TABLET BY MOUTH TWICE A DAY Topiramate 200 MG Tablet TAKE 1 TABLET BY MOUTH TWICE DAILY Orally Twice a day Venlafaxine HCl ER 225 MG Tablet Extended Release 24 Hour TAKE 1 CAPSULE BY MOUTH EVERY DAY Orally Once a day Dantrolene Sodium 50 MG Capsule 1 capsule Orally Once a day traMADol HCl 50 MG Tablet 1 tablet Orally EVERY SIX HOURS , stop date 05/07/2025Taking levETIRAcetam 500 mg Tablet TAKE ONE TABLET BY MOUTH EVERY 12 HOURS Taking Losartan Potassium 100 MG Tablet 1 tablet Orally Once a day Taking Metoprolol Tartrate 50 MG Tablet 1 tablet with food Orally Twice a day Taking Zanaflex 4 MG Tablet TAKE 1 TABLET BY MOUTH THREE TIMES DAILY NEEDED Taking Baclofen 20 MG Tablet TAKE 1 TABLET BY MOUTH TWICE A DAY Taking Topiramate 200 MG Tablet TAKE 1 TABLET BY MOUTH TWICE DAILY Orally Twice a day Taking Venlafaxine HCl ER 225 MG Tablet Extended Release 24 Hour TAKE 1 CAPSULE BY MOUTH EVERY DAY Orally Once a day Taking Dantrolene Sodium 50 MG Capsule 1 capsule Orally Once a day Taking traMADol HCl 50 MG Tablet 1 tablet Orally EVERY SIX HOURS , stop date 05/07/2025Not-TakingMedrol 4 MG Tablet Therapy Pack as directed Orally TITRATE DOWN Baclofen 10 MG Tablet 1 tablet with food or milk Orally bid , Notes to Pharmacist: DUPLICATEBaclofen 20 MG Tablet 1 tablet Orally twice a day , Notes to Pharmacist: DUPLICATEZanaflex 4 MG Tablet TAKE 1 TABLET BY MOUTH THREE TIMES DAILY NEEDED Orally Three times a day Topamax 100 MG Tablet 1 tablet Orally Twice a day , Notes to Pharmacist: DUPLICATEMedrol 4 MG Tablet Therapy Pack as directed Orally Topamax 100 MG Tablet 1 tablet Orally Twice a day , Notes to Pharmacist: DUPLICATEMedication List reviewed and reconciled with the patientNot-Taking Medrol 4 MG Tablet Therapy Pack as directed Orally TITRATE DOWN Not-Taking Baclofen 10 MG Tablet 1 tablet with food or milk Orally bid , Notes to Pharmacist: DUPLICATENot-Taking Baclofen 20 MG Tablet 1 tablet Orally twice a day , Notes to Pharmacist: DUPLICATENot-Taking Zanaflex 4 MG Tablet TAKE 1 TABLET BY MOUTH THREE TIMES DAILY NEEDED Orally Three times a day Not-Taking Topamax 100 MG Tablet 1 tablet Orally Twice a day , Notes to Pharmacist: DUPLICATENot-Taking Medrol 4 MG Tablet Therapy Pack as directed Orally Not- Taking Topamax 100 MG Tablet 1 tablet Orally Twice a day , Notes to Pharmacist: DUPLICATEMedication List reviewed and reconciled with the patient * Allergies: N .K.D.A.no[Allergies Verified] Objective: * Vitals: H R:66/min, BP:149/87mm Hg, Ht: 60 in, Wt:160lbs, BMI:31.24Index, Oxygen sat %:96, Pain scale:01-10, Ht-cm: 152.4 cm, Wt-k.58 kg. * Examination: C QM Exceptions: G ENERAL APPEARANCE: Well appearing, well nourished in no distress. Oriented x 3, normal mood and affect. ... HEAD BILATERAL OCCIPITAL TENDERNESS IN THE GREATER AND LESER DISTRIBUTION (RIGHT GREATER THAN LEFT) .. ABDOMEN: No tenderness, organomegaly, masses, or hernia. ... EXTREMITIES: No edema, peripheral pulses intact. ... MUSCULOSKELETAL: LEFT SHOULDER TENDERNESS POSTERIORLY AND AT THE AC JOINT. LEFT SCAPULAR TENDERNESS IS IMPROVED CERVICAL/UPPER EXTREMITY EXAM: INSPECTION: Scars were present anteriorly in neck and posteriorly in neck. PALPATION: Palpation of the cervical spine was normal. IMPROVEMENT IN THE CERVICAL PARASPINAL MUSCULATURE WHICH WAS DYSTONIC IN TONE AND EXQUISITELY TENDER TO PALPATION.Examination revealed her left shoulder to be elevated. LEFT OCCIPITAL TENDERNESS IMPROVED / LEFT CERVICAL FACET TENDERNESS RETURNING - mildly TTP along left scapular border and superior shoulder. TTP from C6, C7 laterally. There was MILD TO MODERATE pain, tenderness and trigger point localization present on the left at upper trapezius and Rhomboid musculature. MOTOR: Left extremity muscle strength was 4/5. Left extremity muscle strength was 5/5. Upon testing, her left-handed ct mri technologist strength was found to be slightly weakened. Her right-handed ct mri technologist strength was normal. SENSORY: Sensation on the left extremities was normal. Right extremity sensation was normal. GENERAL APPEARANCE: Well appearing, well nourished in no distress. Oriented x 3, normal mood and affect. ... HEAD BILATERAL OCCIPITAL TENDERNESS IN THE GREATER AND LESER DISTRIBUTION (RIGHT GREATER THAN LEFT) .. ABDOMEN: No tenderness, organomegaly, masses, or hernia. ... EXTREMITIES: No edema, peripheral pulses intact. ... MUSCULOSKELETAL: LEFT SHOULDER TENDERNESS POSTERIORLY AND AT THE AC JOINT. LEFT SCAPULAR TENDERNESS. No other abnormalities of digits and nails. No misalignment, asymmetry, crepitation, defects, tenderness, masses, effusions, decreased range of motion, instability, atrophy or abnormal strength or tone in: Right upper extremity,Right lower extremity,Left lower extremity. LEFT SCAPULAR TENDERNESS IS IMPROVED CERVICAL/UPPER EXTREMITY EXAM: INSPECTION: Scars were present anteriorly in neck and posteriorly in neck. PALPATION: Palpation of the cervical spine was normal. IMPROVEMENT IN THE CERVICAL PARASPINAL MUSCULATURE WHICH WAS DYSTONIC IN TONE AND EXQUISITELY TENDER TO PALPATION.Examination revealed her left shoulder to be elevated. LEFT OCCIPITAL TENDERNESS IMPROVED / LEFT CERVICAL FACET TENDERNESS RETURNING - mildly TTP along left scapular border and superior shoulder. TTP from C6, C7 laterally. There was MILD TO MODERATE pain, tenderness and trigger point localization present on the left at upper trapezius and Rhomboid musculature. MOTOR: Left extremity muscle strength was 4/5. Left extremity muscle strength was 5/5. Upon testing, her left-handed ct mri technologist strength was found to be slightly weakened. Her right-handed ct mri technologist strength was normal. SENSORY: Sensation on the left extremities was normal. Right extremity sensation was normal. Assessment: * Assessment: 1. S pondylosis without myelopathy or radiculopathy, cervical region - M47.812 Plan: * Treatment: * Immunizations: Immunization record has been reviewed and updated. * Procedure Codes: * Preventive Medicine: Counseling: B P Management: Lilli GAN RECOMMENDATION: Lilli gan education regarding hypertension. C are goal follow-up plan: B OR management provided Arianna Lynn Normal BMI Follow-up D ietary management education, guidance, and counseling, Dietary needs education, Giving encouragement to exercise, Lifestyle education regarding diet. C ONTINUE HEP ... .... .... CONTROLLED SUBSTANCES VERBAL EDUCATION ... PER RULES OF [place]- may require weaning of medication, if rules are not followed ... 1. Do not share medicine with anyone 2. Do not share other people's controlled medicine 3. Do not use your medicine to get high, binge, or as a substitute for Depression Medication 4. Please have a family or close friend help you monitor intake and how you are doing with medication 5. Please keep medication in a safe location such that others cannot access it 6. Do not sell medication 7. Take medication per as prescribed unless emergency and discussed with me 8. Do not take it upon yourself to make dosage changes 9. Do not stockpile or dorothy medications 10. Do not take distantly prescribed medications Current regimen 11. Do not take illicit drugs including marijuana 12. Refrain from or consume alcohol only in moderation 13. If you develop a respiratory infection decrease dosage or call office for instructions 14. Follow rules stated in written contract 15. Do not barter medication for favors of any kind 16. Do not crush medication or use not as directed 17. Narcan has prescribed and should be available in case of accidental over sedation 18. notify me if receiving controlled medications from other physicians 19. I will ask you at each visit if you have any concerns with addiction misuse or craving of medication 20. If taking a benzodiazepine such as Xanax Ativan Valium Klonopin or Restoril there is an increase of overdose secondary to the additive power of benzodiazepine and opioids please take less at different times and if possible be mindful that this can affect your breathing. If you have over sedation please use Narcan. 21. This applies two Z drugs or sleep aids as well as gabapentinoids such as Neurontin and Lyrica and muscle relaxants 22. Regarding marijuana the governors decree does not allow for patients on chronic pain medication or other controlled medicines to use marijuana legally do not use marijuana 23. Please check and ensure that your Narcan nasal spray is not outdated if it has been please let me know I will send a new prescription if you cannot afford it or need more you can contact the [facility] addiction hotline at [phone] and they should be able to provide you with free Narcan. * * Sign off status: Completed true * Provider: Luiza Ferreira MD Date: 0 04/21/2025 Generated for Johanna willis/Mahamed/Efraín on: 0 06/11/2025 02:19 PM EDT History and Physical Notes * HPI (History of Present Illness) Category Sub-Category Detail Notes Category Not es Interim History Patient presents for a follow up for chronic pain management. On the last visit, patient had a left sacroiliac joint injection on 03/31/25. According to post procedural pain diary and discussion, patient reports 98% relief during the anesthetic phase and greater than 98% relief and decreased symptoms for ongoing. Patient's CC: left hip pain, which they score a 0/10 NRS at rest that increases to 8/10 NRS with activity. Pt reports that standing and moving a certain way increases this pain. Pt reports that resting helps reduce this pain. Pt reports no changes in health history and denies any changes in medications from outside providers. Denies adverse effects to prescribed medication. Reports taking medications as prescribed. No refills were provided today, dates verified with ROLANDO. Pt to continue tramadol. Last UDS was reviewed and was compliant for prescribed medication. Patient has benefited from Interventional Treatment in the past regarding their pain. They have not scheduled treatment at this time. We will follow up accordingly and continue medication management. Based on the physical exam and clinical findings, we will schedule pt will call as needed. Goal of treatment maintain left hip pain. Scribe- Pain Management Assessment and followup Followup plan documented :: Yes Examination Category Sub-Category Detail Notes Category Not es CQM Exceptions GENERAL APPEARANCE: Well appearing, well nourished in no distress. Oriented x 3, normal mood and affect. ... HEAD BILATERAL OCCIPITAL TENDERNESS IN THE GREATER AND LESER DISTRIBUTION (RIGHT GREATER THAN LEFT) .. ABDOMEN: No tenderness, organomegaly, masses, or hernia. ... EXTREMITIES: No edema, peripheral pulses intact. ... MUSCULOSKELETAL: LEFT SHOULDER TENDERNESS POSTERIORLY AND AT THE AC JOINT. LEFT SCAPULAR TENDERNESS IS IMPROVED CERVICAL/UPPER EXTREMITY EXAM: INSPECTION: Scars were present anteriorly in neck and posteriorly in neck. PALPATION: Palpation of the cervical spine was normal. IMPROVEMENT IN THE CERVICAL PARASPINAL MUSCULATURE WHICH WAS DYSTONIC IN TONE AND EXQUISITELY TENDER TO PALPATION.Examination revealed her left shoulder to be elevated. LEFT OCCIPITAL TENDERNESS IMPROVED / LEFT CERVICAL FACET TENDERNESS RETURNING - mildly TTP along left scapular border and superior shoulder. TTP from C6, C7 laterally. There was MILD TO MODERATE pain, tenderness and trigger point localization present on the left at upper trapezius and Rhomboid musculature. MOTOR: Left extremity muscle strength was 4/5. Left extremity muscle strength was 5/5. Upon testing, her left-handed ct mri technologist strength was found to be slightly weakened. Her right-handed ct mri technologist strength was normal. SENSORY: Sensation on the left extremities was normal. Right extremity sensation was normal. GENERAL APPEARANCE: Well appearing, well nourished in no distress. Oriented x 3, normal mood and affect. ... HEAD BILATERAL OCCIPITAL TENDERNESS IN THE GREATER AND LESER DISTRIBUTION (RIGHT GREATER THAN LEFT) .. ABDOMEN: No tenderness, organomegaly, masses, or hernia. ... EXTREMITIES: No edema, peripheral pulses intact. ... MUSCULOSKELETAL: LEFT SHOULDER TENDERNESS POSTERIORLY AND AT THE AC JOINT. LEFT SCAPULAR TENDERNESS. No other abnormalities of digits and nails. No misalignment, asymmetry, crepitation, defects, tenderness, masses, effusions, decreased range of motion, instability, atrophy or abnormal strength or tone in: Right upper extremity,Right lower extremity,Left lower extremity. LEFT SCAPULAR TENDERNESS IS IMPROVED CERVICAL/UPPER EXTREMITY EXAM: INSPECTION: Scars were present anteriorly in neck and posteriorly in neck. PALPATION: Palpation of the cervical spine was normal. IMPROVEMENT IN THE CERVICAL PARASPINAL MUSCULATURE WHICH WAS DYSTONIC IN TONE AND EXQUISITELY TENDER TO PALPATION.Examination revealed her left shoulder to be elevated. LEFT OCCIPITAL TENDERNESS IMPROVED / LEFT CERVICAL FACET TENDERNESS RETURNING - mildly TTP along left scapular border and superior shoulder. TTP from C6, C7 laterally. There was MILD TO MODERATE pain, tenderness and trigger point localization present on the left at upper trapezius and Rhomboid musculature. MOTOR: Left extremity muscle strength was 4/5. Left extremity muscle strength was 5/5. Upon testing, her left-handed ct mri technologist strength was found to be slightly weakened. Her right-handed ct mri technologist strength was normal. SENSORY: Sensation on the left extremities was normal. Right extremity sensation was normal.
--- OUTSIDE RECORDS SUMMARY | 2025-05-05 05:15 | XMS_ITS ---
Author Organization [facility] Address [address] [place] [address] Care Team Providers Care Policy Change Clerks Supervisor Name Role Phone Garrison Ovalles Primary Care Provider Bk Ferreira Unavailable [phone] Nadir Waite Unavailable [phone] Allergies No Known Allergies REASON FOR VISIT OFFICE VISIT//WC Medications Medication SIG (Take, Route, Frequency, Duration) Notes Start Date End Date Status Topamax 100 MG 1 tablet Orally Twice a day; Duration: 30 DUPLICATE Not-Taking Medrol 4 MG as directed Orally Not-Taking Baclofen 20 MG 1 tablet Orally twice a day; Duration: 30 days DUPLICATE Not-Taking Topamax 100 MG 1 tablet Orally Twice a day DUPLICATE Not-Taking Zanaflex 4 MG TAKE 1 TABLET BY MOUTH THREE TIMES DAILY NEEDED Orally Three times a day; Duration: 30 days Not-Taking Dantrolene Sodium 50 MG 1 capsule Orally Once a day; Duration: 90 days Active Medrol 4 MG as directed Orally TITRATE DOWN; Duration: 6 days 03/10/2021 Not-Taking traMADol HCl 50 MG 1 tablet Orally EVERY SIX HOURS; Duration: 30 days 04/10/2025 06/04/2025 Active Topiramate 200 MG TAKE 1 TABLET BY MOUTH TWICE DAILY Orally Twice a day; Duration: 90 days Active Baclofen 10 MG 1 tablet with food or milk Orally bid DUPLICATE Not-Taking Baclofen 20 MG TAKE 1 TABLET BY MOUTH TWICE A DAY 08/28/2018 Active Zanaflex 4 MG TAKE 1 TABLET BY MOUTH THREE TIMES DAILY NEEDED Active Venlafaxine HCl ER 225 MG TAKE 1 CAPSULE BY MOUTH EVERY DAY Orally Once a day; Duration: 90 days Active Metoprolol Tartrate 50 MG 1 tablet with food Orally Twice a day; Duration: 30 day(s) Active Losartan Potassium 100 MG 1 tablet Orally Once a day; Duration: 30 day(s) Active levETIRAcetam 500 mg TAKE ONE TABLET BY MOUTH EVERY 12 HOURS; Duration: 30 Active Social History Tobacco use other than smoking: Question Answer Notes Are you an other tobacco user? No Vital Signs Blood pressure systolic 156 mm Hg 05/05/20 25 Blood pressure diastolic 83 mm Hg 025 Heart Rate 61 /min 05/05/2025 Height 60 in 05/05/2025 Weight 160 lbs 05/05/2025 BMI 31.24 kg/m2 05/05/2025 Oximetry 96 % 05/05/2025 Encounters Encounter Location Date Provider Diagnosis [facility] [address] [place] [address] 05/05/2025 Bk Ferreira Spondylosis without myelopathy or radiculopathy, cervical region M47.812 Assessments Encounter Date Diagnosis (ICD Code) Assessment Notes Treatment Notes Treatment Clinical Notes Section Notes 05/05/2025 Spondylosis without myelopathy or radiculopathy, cervical region (ICD-10 - M47.812) TRAMADOL, DNF 05/10/2025 Plan Of Treatment Medication Medication Name Sig Start Date Stop Date Notes traMADol HCl 50 MG 1 tablet Orally EVER Y SIX HOURS; Duration: 30 days 04/10/2025 06/04/2025 Topiramate 200 MG TAKE 1 TABLET BY AZIZA TH TWICE DAILY Orally Twice a day; Duration: 90 days Treatment Notes Assessment Notes Spondylosis without myelopat hy or radiculopathy, cervical region TRAMADOL, DNF 05/10/2025 Next Appt Details Follow Up: , Reason: OFFICE VISIT,MEDICATION REFILL Provider Name:Bk gerardo, 06/30/2025 08:30:00 AM, [address] [place], [address], Progress Notes * Pushpa CUBAOB:1960 (64 yo F)Acc No.[id number]:05/05/2025 Progress Notes Patient: Desirae BAXTER Provider: Luiza Ferreira MD :1960 A ge:64 Y S ex:Female Date:05/05/2025 Address:[address] [facility] Pcp:Garrison Ovalles Subjective: * Chief Complaints: * O FFICE VISIT//WC * HPI: I nterim History: Patient presents today for WC office visit for their chronic pain and pain management. Patient's CC: Left Shoulder/Trap Pain, which the patient is scoring a 4/10 NRS at rest that increases to 10/10 NRS with turning head and range of motion. Pt describes this pain as aching, shocking, shooting, throbbing, tingling, stabbing, sharp. Pt reports that taking their prescribed pain medication, applying ice and/or heat and treatment reduces this pain. Pt reports no changes in health history and denies any changes in medications from outside providers. Denies adverse effects to prescribed medication. Reports taking medications as prescribed. Medications and interventional treatment are helping with function and ADLs such as working outside in her yard. Tramadol and Topamax refills were issued today. Last UDS was reviewed and was compliant for prescribed medication. Patient has benefited from Interventional Treatment in the past regarding their pain. They have not scheduled treatment at this time. We will follow up accordingly and continue medication management. Based on the physical exam and clinical findings, we will schedule an office visit in one month. SCRIBE~AK. Maria Guadalupe ralph Management: Assessment and followup [facility] documented : Y es. L eft shoulder: LEFT SHOULDER MRI DATED 06/2019 A SMALL FIBROCYSTIC BONE LESION IS NOTED IN THE HUMERAL HEAD UNDER THE DISTAL INFRASPINATUS TENDON. THERE IS NO EVIDENCE OF SIGNIFICANT INTERNAL DERANGEMENT OF THE LEFT SHOULDER. C ervical Spine/Neck: CERVICAL MRI DATED 02/02/2022 There has been previous anterior fusion from C3 through C6. At C6-7, significant degenerative changes are present. A posterior disc/spur complex and left uncovertebral joint spurring result in mild narrowing of the thecal sac and severe narrowing of the left neural foramen. CERVICAL MRI DATED 02/02/2022 There has been previous anterior fusion from C3 through C6. At C6-7, significant degenerative changes are present. A posterior disc/spur complex and left uncovertebral joint spurring result in mild narrowing of the thecal sac and severe narrowing of the left neural foramen. * ROS: S EE INTAKE FORM General/Constitutional [...] of mixed drinks N one. M iscellaneous: C hildren: yes. Marital status: . H ousehold: H [...] Tablet 1 tablet Orally EVERY SIX HOURS Taking levETIRAcetam 500 mg Tablet TAKE ONE TABLET [...] Tablet 1 tablet Orally EVERY SIX HOURS Not-TakingMedrol 4 MG Tablet Therapy Pack as directed [...] N .K.D.A.no[Allergies Verified] Objective: * Vitals: H R:61/min, BP:156/83mm Hg, Ht: 60 in, Wt:160lbs, BMI:31.24Index, Oxygen sat %:96, Pain scale:41-10, Ht-cm: 152.4 cm, Wt-k.58 kg. * Examination: [...] strength was 5/5. Upon testing, her left-handed buyer strength was found to be slightly weakened. Her right-handed buyer strength was normal. SENSORY: Sensation on the [...] strength was 5/5. Upon testing, her left-handed buyer strength was found to be slightly weakened. Her right-handed buyer strength was normal. SENSORY: Sensation on the left extremities was normal. Right extremity sensation was normal. Assessment: * Assessment: 1. S pondylosis without myelopathy or radiculopathy, cervical region - M47.812 Plan: * Treatment: 2. O thers Refill Topiramate Tablet, 200 MG, TAKE 1 TABLET BY MOUTH TWICE DAILY, Orally, Twice a day, 90 days, 180, Refills 0. * Procedures: H OME EXERCISE PROGRAM TO BE TRIALED AT TWICE WEEKLY: EXERCISE PROGRAM HAS BEEN CREATED BY THE [employer] . * Immunizations: Immunization record has been reviewed and updated. * Procedure Codes: * Preventive Medicine: Counseling: Lazaro Lerma Management: Lilli GAN RECOMMENDATION: Lilli gan education regarding hypertension. C are goal follow-up plan: B RI management provided Y es, Arianna salas Normal BMI Follow-up D ietary management education, [...] dosage changes 9. Do not stockpile or droothy medications 10. Do not take distantly prescribed [...] or need more you can contact the [facility] addiction hotline at [phone] and they should be able to provide you with free Narcan. * Follow Up: Luiza holm: OFFICE VISIT,MEDICATION REFILL * * Sign off status: Completed true * Provider: Luiza Ferreira MD Date: 0 05/05/2025 Generated for Johanna willis/Mahamed/Shirasmitting on: 0 06/11/2025 02:18 PM EDT History and Physical Notes * HPI (History of Present Illness) Category Sub-Category Detail Notes Category Not es Cervical Spine/Neck CERVICAL MRI DATED 02/02/2022 There has been previous anterior fusion from C3 through C6. At C6-7, significant degenerative changes are present. A posterior disc/spur complex and left uncovertebral joint spurring result in mild narrowing of the thecal sac and severe narrowing of the left neural foramen. CERVICAL MRI DATED 02/02/2022 There has been previous anterior fusion from C3 through C6. At C6-7, significant degenerative changes are present. A posterior disc/spur complex and left uncovertebral joint spurring result in mild narrowing of the thecal sac and severe narrowing of the left neural foramen. Left shoulder LEFT SHOULDER MRI DATED 06/2019 A SMALL FIBROCYSTIC BONE LESION IS NOTED IN THE HUMERAL HEAD UNDER THE DISTAL INFRASPINATUS TENDON. THERE IS NO EVIDENCE OF SIGNIFICANT INTERNAL DERANGEMENT OF THE LEFT SHOULDER. Interim History Patient presents today for WC office visit for their chronic pain and pain management. Patient's CC: Left Shoulder/Trap Pain, which the patient is scoring a 4/10 NRS at rest that increases to 10/10 NRS with turning head and range of motion. Pt describes this pain as aching, shocking, shooting, throbbing, tingling, stabbing, sharp. Pt reports that taking their prescribed pain medication, applying ice and/or heat and treatment reduces this pain. Pt reports no changes in health history and denies any changes in medications from outside providers. Denies adverse effects to prescribed medication. Reports taking medications as prescribed. Medications and interventional treatment are helping with function and ADLs such as working outside in her yard. Tramadol and Topamax refills were issued today. Last UDS was reviewed and was compliant for prescribed medication. Patient has benefited from Interventional Treatment in the past regarding their pain. They have not scheduled treatment at this time. We will follow up accordingly and continue medication management. Based on the physical exam and clinical findings, we will schedule an office visit in one month. [facility] Assessment and followup Followup plan [...] strength was 5/5. Upon testing, her left-handed buyer strength was found to be slightly weakened. Her right-handed buyer strength was normal. SENSORY: Sensation on the [...] strength was 5/5. Upon testing, her left-handed buyer strength was found to be slightly weakened. Her right-handed buyer strength was normal. SENSORY: Sensation on the left extremities was normal. Right extremity sensation was normal.
--- OUTSIDE RECORDS SUMMARY | 2025-05-26 10:30 | XMS_ITS ---
Author Organization [facility] Address [address] [place] [address] Care Team Providers Care Marine Diesel Technician Name Role Phone Garrison Ovalles Primary Care Provider Bk Ferreira Unavailable [phone] Nadir Waite Unavailable [phone] Allergies No Known Allergies REASON FOR VISIT OFFICE VISIT//WC Medications Medication SIG (Take, Route, Frequency, Duration) Notes Start Date End Date Status Baclofen 20 MG 1 tablet Orally twice a day; Duration: 30 days DUPLICATE Not-Taking Baclofen 10 MG 1 tablet with food or milk Orally bid DUPLICATE Not-Taking Medrol 4 MG as directed Orally TITRATE DOWN; Duration: 6 days 03/10/2021 Not-Taking Dantrolene Sodium 50 MG 1 capsule Orally Once a day; Duration: 90 days Active Venlafaxine HCl ER 225 MG TAKE 1 CAPSULE BY MOUTH EVERY DAY Orally Once a day; Duration: 90 days Active Losartan Potassium 100 MG 1 tablet Orally Once a day; Duration: 30 day(s) Active traMADol HCl 50 MG 1 tablet Orally EVERY SIX HOURS; Duration: 30 days 05/09/2025 06/25/2025 Active Baclofen 20 MG TAKE 1 TABLET BY MOUTH TWICE A DAY 08/28/2018 Active Zanaflex 4 MG TAKE 1 TABLET BY MOUTH THREE TIMES DAILY NEEDED Active Metoprolol Tartrate 50 MG 1 tablet with food Orally Twice a day; Duration: 30 day(s) Active Medrol 4 MG as directed Orally Not-Taking levETIRAcetam 500 mg TAKE ONE TABLET BY MOUTH EVERY 12 HOURS; Duration: 30 Active Topamax 100 MG 1 tablet Orally Twice a day DUPLICATE Not-Taking Topiramate 200 MG TAKE 1 TABLET BY MOUTH TWICE DAILY Orally Twice a day; Duration: 90 days Active Topamax 100 MG 1 tablet Orally Twice a day; Duration: 30 DUPLICATE Not-Taking Zanaflex 4 MG TAKE 1 TABLET BY MOUTH THREE TIMES DAILY NEEDED Orally Three times a day; Duration: 30 days Not-Taking Social History Tobacco use other than smoking: Question Answer Notes Are you an other tobacco user? No Vital Signs Blood pressure systolic 143 mm Hg 05/26/20 25 Blood pressure diastolic 70 mm Hg 025 Heart Rate 64 /min 05/26/2025 Height 60 in 05/26/2025 Weight 160 lbs 05/26/2025 BMI 31.24 kg/m2 05/26/2025 Oximetry 98 % 05/26/2025 Encounters Encounter Location Date Provider Diagnosis [facility] [address] [place] [address] 05/26/2025 Bk Ferreira Spondylosis without myelopathy or radiculopathy, cervical region M47.812 ; Cervical dystonia G24.3 and Cervical spondylosis M47.812 Assessments Encounter Date Diagnosis (ICD Code) Assessment Notes Treatment Notes Treatment Clinical Notes Section Notes 05/26/2025 Spondylosis without myelopathy or radiculopathy, cervical region (ICD-10 - M47.812) 05/26/2025 Cervical dystonia (ICD-10 - G24.3) 05/26/2025 Cervical spondylosis (ICD-10 - M47.812) Plan Of Treatment Medication Medication Name Sig Start Date Stop Date Notes traMADol HCl 50 MG 1 tablet Orally EVER Y SIX HOURS; Duration: 30 days 05/09/2025 06/25/2025 Next Appt Details Provider Name:Bk gerardo, 06/30/2025 08:30:00 AM, [address] [place], [address], Progress Notes * Pushpa CUBAOB:1960 (65 yo F)Acc No.[id number]:05/26/2025 Progress Notes Patient: Desirae BAXTER Provider: Luiza Ferreira MD :1960 A ge:64 Y S ex:Female Date:05/26/2025 Address:[address] [facility] Pcp:Garrison Ovalles Subjective: * Chief Complaints: * O FFICE VISIT//WC * HPI: I nterim History: Patient presents for a follow-up for chronic pain management. Patient's CC: Left Cervical/Shoulder Pain, which they score a 6/10 NRS at rest that increases to 10/10 NRS with activity. Pt describes this pain as aching, stabbing and throbbing. Pt reports that doing anything with left arm increases this pain. Pt reports that medication and heating pad helps reduce this pain. Pt reports no changes in health history and denies any changes in medications from outside providers. Denies adverse effects to prescribed medication. Reports taking medications as prescribed. Refills for tramadol were provided today, dates verified with ROLANDO. Last UDS was reviewed and was compliant for prescribed medication. Patient would like to treat their pain. They have scheduled treatment at this time. We will follow up accordingly and continue medication management. Based on the physical exam and clinical findings, we will schedule left dorsal scapular radiofrequency ablation under workers comp. Patient completed a left dorsal scapular RFA in 05/2024 and reports greater than80% of ongoing relief from the ablation [employer]-[place] & [place]. P ain Management: Assessment and followup F ollowup plan documented : Y es. L eft [...] F ather: unknown, diagnosed with Hypertension. M atesalvador Grandmother: . M aternal Grandfather: . P [...] education: f inished college.? * Medications: T akingTopiramate 200 MG Tablet TAKE 1 TABLET BY MOUTH TWICE DAILY Orally Twice a day traMADol HCl 50 MG Tablet 1 tablet Orally EVERY SIX HOURS , stop date 06/04/2025levETIRAcetam 500 mg Tablet TAKE ONE TABLET BY MOUTH EVERY 12 HOURS Losartan Potassium 100 MG Tablet 1 tablet Orally Once a day Metoprolol Tartrate 50 MG Tablet 1 tablet with food Orally Twice a day Zanaflex 4 MG Tablet TAKE 1 TABLET BY MOUTH THREE TIMES DAILY NEEDED Baclofen 20 MG Tablet TAKE 1 TABLET BY MOUTH TWICE A DAY Venlafaxine HCl ER 225 MG Tablet Extended Release 24 Hour TAKE 1 CAPSULE BY MOUTH EVERY DAY Orally Once a day Dantrolene Sodium 50 MG Capsule 1 capsule Orally Once a day Taking Topiramate 200 MG Tablet TAKE 1 TABLET BY MOUTH TWICE DAILY Orally Twice a day Taking traMADol HCl 50 MG Tablet 1 tablet Orally EVERY SIX HOURS , stop date 06/04/2025Taking levETIRAcetam 500 mg Tablet TAKE ONE TABLET [...] TABLET BY MOUTH TWICE A DAY Taking Venlafaxine HCl ER 225 MG Tablet Extended Release 24 Hour TAKE 1 CAPSULE BY MOUTH EVERY DAY Orally Once a day Taking Dantrolene Sodium 50 MG Capsule 1 capsule Orally Once a day Not-TakingMedrol 4 MG Tablet Therapy Pack as [...] N .K.D.A.no[Allergies Verified] Objective: * Vitals: H R:64/min, BP:143/70mm Hg, Ht: 60 in, Wt:160lbs, BMI:31.24Index, Oxygen sat %:98, Pain scale:61-10, Ht-cm: 152.4 cm, Wt-k.58 kg. * Examination: [...] strength was 5/5. Upon testing, her left-handed habilitation training specialist strength was found to be slightly weakened. Her right-handed habilitation training specialist strength was normal. SENSORY: Sensation on the [...] strength was 5/5. Upon testing, her left-handed habilitation training specialist strength was found to be slightly weakened. Her right-handed habilitation training specialist strength was normal. SENSORY: Sensation on the left extremities was normal. Right extremity sensation was normal. Assessment: * Assessment: 1. S pondylosis without myelopathy or radiculopathy, cervical region - M47.812 2 . C ervical dystonia - G24.3 3 . C ervical spondylosis - M47.812 ? Plan: * Treatment: * Procedures: H OME EXERCISE PROGRAM TO BE TRIALED AT TWICE WEEKLY: EXERCISE PROGRAM HAS BEEN CREATED BY THE [employer] . * Immunizations: Immunization record has been reviewed and updated. * Procedure Codes: * Preventive Medicine: Counseling: B P Management: Lilli GAN RECOMMENDATION: Lilli gan education regarding hypertension. C are goal follow-up plan: B [place] management provided Y es, Arianna adamese Normal BMI Follow-up D ietary management education, [...] or need more you can contact the [facility] addiction hotline at [phone] and they should be able to provide you with free Narcan. * * Sign off status: Completed true * Provider: Luiza Ferreira MD Date: 05/26/2025 Generated for Johanna willis/Mahamed/Lindyitting on: 06/11/2025 02:18 PM EDT History and Physical [...] THE LEFT SHOULDER. Interim History Patient presents for a follow-up for chronic pain management. Patient's CC: Left Cervical/Shoulder Pain, which they score a 6/10 NRS at rest that increases to 10/10 NRS with activity. Pt describes this pain as aching, stabbing and throbbing. Pt reports that doing anything with left arm increases this pain. Pt reports that medication and heating pad helps reduce this pain. Pt reports no changes in health history and denies any changes in medications from outside providers. Denies adverse effects to prescribed medication. Reports taking medications as prescribed. Refills for tramadol were provided today, dates verified with ROLANDO. Last UDS was reviewed and was compliant for prescribed medication. Patient would like to treat their pain. They have scheduled treatment at this time. We will follow up accordingly and continue medication management. Based on the physical exam and clinical findings, we will schedule left dorsal scapular radiofrequency ablation under workers comp. Patient completed a left dorsal scapular RFA in 05/2024 and reports greater than 80% of ongoing relief from the ablation [facility] [place] Pain Management Assessment and followup Followup plan [...] strength was 5/5. Upon testing, her left-handed habilitation training specialist strength was found to be slightly weakened. Her right-handed habilitation training specialist strength was normal. SENSORY: Sensation on the [...] strength was 5/5. Upon testing, her left-handed habilitation training specialist strength was found to be slightly weakened. Her right-handed habilitation training specialist strength was normal. SENSORY: Sensation on the left extremities was normal. Right extremity sensation was normal.
--- NOTE | 2025-06-11 13:59 | ED_ITS ---
Discharge Plan Disposition Patient Disposition: Home, Self-Care Condition: Good Prescriptions Prescriptions: New methocarbamol 750 mg tablet 750 mg PO HS Qty: 14 0RF methylprednisolone [Medrol (Doug)] 4 mg tablets,dose pack 4 mg PO DAILY Qty: 21 0RF No Action tramadol 50 mg tablet 50 mg PO QID Patient Comments: TAKE 1 TABLET BY MOUTH FOUR TIMES DAILY NEEDED topiramate 200 mg tablet 200 mg PO BID Patient Comments: TAKE 1 TABLET BY MOUTH TWICE DAILY dantrolene 50 mg capsule 50 mg PO HS levetiracetam 500 mg tablet 500 mg PO BID Patient Comments: TAKE 1 TABLET BY MOUTH TWICE DAILY diclofenac potassium [Cambia] 50 mg powder in packet 50 mg PO DAILY PRN (Reason: .) Rx Instructions: must be taken on empty stomach with water only Excedrin Migraine 250-250-65 mg tablet 1 tab PO Q4-6H PRN (Reason: Headache) aspirin [Adult Aspirin Regimen] 81 mg tablet,delayed release (DR/EC) 81 mg PO DAILY Qty: 90 3RF venlafaxine 150 mg capsule,extended release 24hr 150 mg PO DAILY Qty: 30 1RF metoprolol succinate 25 mg tablet extended release 24 hr 25 mg PO DAILY Qty: 30 2RF ezetimibe 10 mg tablet See Rx Instructions .ROUTE .COMPLEX Qty: 90 0RF Dose Instruction: TAKE ONE TABLET BY MOUTH ONCE A DAY Rx Instructions: TAKE ONE TABLET BY MOUTH ONCE A DAY venlafaxine 37.5 mg capsule,extended release 24hr 37.5 mg PO DAILY Qty: 30 0RF Referrals Follow up/Referrals: Doe Black MD [Primary Care Provider, Medical] - See instructions Activity Restrictions/Add. Instructions Additional Instructions/Restrictions: Please return to the emergency department with any worsening signs or symptoms, continue to take all your medication as prescribed, please utilize your dantrolene muscle relaxer or methocarbamol muscle relaxer, do not take together. Please use either or. Please take your steroid medication as prescribed with food daily. Please follow-up with your PCP and pain management physicians. Clinical Impressions Clinical Impression: Degenerative disc disease, lumbar, Acute lumbar myofascial strain Instructions Patient Instructions: DI for Low Back Pain Print Language Print Language: Algerian Discharge ED Provider: Jace Lion Adult HPI <FELICITY Yao - Last Filed: 06/11/25 16:32> General Chief complaint: Back Pain/Injury Stated complaint: back pain Time Seen by Provider: 06/11/25 13:57 Mode of Arrival: Ambulatory Source of Information: Patient Limitations: No Limitations History of Present Illness HPI narrative: 65-year-old female presents to the emergency department with left-sided hip pain/back pain/flank pain for the last 3 to 4 days, patient has tried tramadol ice, heat, with little to no relief or symptomatology, she denies any injury or trauma per history, no loud pop sensation, the pain stays in the left flank/left-sided back and into the hip region/buttock region, with no radicular extension into the left lower extremity, no numbness or tingling, patient moves extremity to command has been walking unaffected, but is somewhat pain limiting and has a hard time getting comfortable . Patient denies any fever chills chest pain shortness of breath, does admit to nausea, denies any overt abdominal pain, denies constipation diarrhea no urinary symptomatology, no hematuria melena hematochezia, hemoptysis, or hematemesis, patient is a current everyday smoker, denies any alcohol or drug use, other past medical history is notable for MDD, PTSD, NATALI, insomnia, TREY, degenerative disc disease of the cervical spine, of note, 2 months ago patient underwent what sounds like a nerve ablation/epidural injection of her lower lumbar spine for sciatica , with some improvement to her symptomatology, vitamin D deficiency, data deficient history of cerebral aneurysm, hypertension, hyperlipidemia, migraines, CAD. Initial triage vitals are unremarkable. Of note patient has been attempting to utilize tramadol for symptomatic relief with little to no relief of her symptomatology. Onset (ago): day(s) Related Data Home Medications ?Medication ?Instructions ?Recorded ?Confirmed [id number] 250 1 tab PO Q4-6H PRN Headache 12/14/23 12/29/24 mg-250 mg-65 mg tablet (Excedrin Migraine) dantrolene 50 mg capsule 50 mg PO HS 12/14/23 5 diclofenac potassium 50 mg oral 50 mg PO DAILY PRN . 0 12/14/23 12/29/24 powder packet (Cambia) levetiracetam 500 mg tablet 500 mg PO BID 12/14/23 topiramate 200 mg tablet 200 mg PO BID 12/14/2312/29 tramadol 50 mg tablet 50 mg PO QID 12/14/23 Previous Rx's ?Medication ?Instructions ?Recorded aspirin 81 mg tablet,delayed 81 mg PO DAILY #90 tabs 0 12/25/23 release (Adult Aspirin Regimen) metoprolol succinate 25 mg 25 mg PO DAILY #30 tabs 01/05 tablet,extended release 24 hr ezetimibe 10 mg tablet See Rx Instructions .Route 1 01/08/24 .COMPLEX #90 tabs venlafaxine 150 mg 150 mg PO DAILY #30 caps 05/06 capsule,extended release 24 hr venlafaxine 37.5 mg 37.5 mg PO DAILY #30 caps capsule,extended release 24 hr methocarbamol 750 mg tablet 750 mg PO HS #14 tabs 05/14 12/06 methylprednisolone 4 mg tablets in 4 mg PO DAILY #21 t abs 06/11/25 a dose pack (Medrol (Doug)) Allergies Allergy/AdvReac Type Severity Reaction Status Date / Time lisinopril AdvReac Cough Verified 12/29/24 11:52 [facility] <FELICITY Yao - Last Filed: 06/11/25 16:32> [facility] Disclaimer: The information contained in this section may have been updated after the patient was seen, as this information can be updated by other users. Medical History TREY (obstructive sleep apnea) Brain aneurysm HTN (hypertension) HLD (hyperlipidemia) Family history of coronary artery disease Atypical angina Hemorrhoids Nerve pain Detachment of triangular fibrocartilage Foot fracture, left Colon polyps TFCC (triangular fibrocartilage complex) injury Anxiety and depression Migraines Aneurysm Mass of ovary Abnormal Pap smear of cervix Surgical History History of foot surgery History of surgery on right wrist Hx of tonsillectomy H/O dilation and curettage History of endoscopic sinus surgery H/O blepharoplasty History of hysterectomy H/O removal of cyst H/O right breast biopsy H/O left breast biopsy S/P cervical spinal fusion H/O hemorrhoidectomy Family History Other Anemia Cancer Coronary artery disease Heart attack Hyperlipidemia Hypertension Stroke Thyroid disorder Social History Smoking Status: Current every day smoker tobacco type: cigarettes packs per day: 1 smoking status start date: 1979 smoked: 44 alcohol intake: never substance use type: denies use current occupational status: disabled Travel in the last 8 weeks?: Inside the [place] caffeine: Yes Have you lived/traveled outside [place] in past 30 days?: No Contact w/someone who lives/traveled outside US past 30 days?: No Exposure to someone with infectious disease in past 14 days?: No Do you have a fever (greater than 100.4 F or 38 C)?: No Have you tested positive for COVID-19?: No Exposed to someone with COVID-19 in past 14 days?: No Do you have a sore throat?: No Do you have a cough?: No Do you have any weakness?: No Do you have any diarrhea?: No Are you experiencing any unusual bleeding?: No Do you have any muscle aches/pain?: Yes Do you have any abdominal pain?: No Are you experiencing loss of taste or smell?: Yes Other Medical History Have you received the Flu Vaccine for this season: No Have you received the Pneumonia Vaccine: No <FELICITY Yao - Last Filed: 06/11/25 16:32> ROS Obtained: Yes All systems reviewed & no additional complaints except as documented Physical Exam <FELICITY Yao - Last Filed: 06/11/25 16:32> General General appearance: alert and in no apparent distress Comment: Uncomfortable appearing female, actively moving around in pain at the bedside Head Head exam: atraumatic and normocephalic Eye Eye exam: Present PERRL and EOMI ENT ENT exam: Present mucous membranes moist Neck Neck exam: Present normal inspection Chest Chest inspection: Present normal inspection and symmetric chest wall rise Respiratory Respiratory exam: Present normal lung sounds bilaterally; Absent respiratory distress Cardiovascular Cardiovascular exam: Present regular rate and normal rhythm Abdominal Exam Abdominal exam: Present soft and tenderness; Absent guarding, rebound or rigidity Abdominal tenderness: Present LLQ and mild Extremities Exam Extremities exam: Present normal inspection Back Exam Back exam: Present normal inspection, tenderness, CVA tenderness (L), paraspinal tenderness and straight leg raise (L); Absent full ROM or vertebral tenderness Neurological Exam Neurological exam: Present alert and oriented X3 Psychiatric Psychiatric exam: Present normal affect Skin Skin exam: Present warm and dry Medical Decision Making <FELICITY Yao - Last Filed: 06/11/25 16:32> Medical Records Medical records reviewed: Yes I reviewed the patient's medical records. Screening: Per USPSTF and CDC recommendations, given the prevalence of disease in our region, it is our hospital?s policy to screen for HIV and viral Hepatitis for all patients aged 18 and over and those with ongoing risk factors. Meño Inquiry Pt receiving controlled substance: No Meño was queried for this patient: No Vital Signs: 06/11/25 14:00 06/11/25 14:32 06/11/25 15:32 Temperature 98.3 F Temperature Source Oral Pulse Rate 67 65 Pulse Rate [Right Brachial] 78 Respiratory Rate 16 17 17 Blood Pressure 152/78 H 152/80 H Blood Pressure [Right Arm] 188/106 H Blood Pressure Mean 112 115 Blood Pressure Mean [Right Arm] 133 Blood Pressure Source Blood Pressure Source [Right Arm] Automatic Cuff Blood Pressure Position Blood Pressure Position [Right Arm] Sitting 02 Sat by Pulse Oximetry 96 98 100 Oxygen Delivery Method Room Air Room Air Room Air 06/11/25 16:43 Temperature 97.8 F Temperature Source Oral Pulse Rate 62 Pulse Rate [Right Brachial] Respiratory Rate 16 Blood Pressure 174/89 H Blood Pressure [Right Arm] Blood Pressure Mean Blood Pressure Mean [Right Arm] Blood Pressure Source Automatic Cuff Blood Pressure Source [Right Arm] Blood Pressure Position Sitting Blood Pressure Position [Right Arm] 02 Sat by Pulse Oximetry Oxygen Delivery Method Room Air Lab Data Lab results reviewed: Yes I reviewed the patient's lab results. Lab Results 06/11/25 14:00: Urine Color Yellow, Urine Appearance Clear, Urine pH 7.0, Ur Specific [place] <= 1.005, Urine Protein Negative, Urine Glucose (UA) Negative, Urine Ketones Negative, Urine Blood Trace-i, Urine Nitrate Negative, Urine Bilirubin Negative, Urine Urobilinogen 0.2, Ur Leukocyte Esterase Negative, Urine RBC Occasional, Urine WBC Occasional, Ur Squamous Epith Cells 3-5, Urine Bacteria Trace 06/11/25 14:21: WBC 11.6 H, RBC 4.22, Hgb 13.3, Hct 41.4, MCV 98.1, MCH 31.5 H, MCHC 32.1, RDW 13.0, Plt Count 341, MPV 10.6 H, Neut % (Auto) 48.7, Lymph % (Auto) 43.3, [place] % (Auto) 5.2, Eos % (Auto) 1.5, Baso % (Auto) 0.8, Neut # (Auto) 5.7, Lymph # (Auto) 5.0 H, [place] # (Auto) 0.6, Eos # (Auto) 0.2, Baso # (Auto) 0.1, Total Counted 100, Neutrophils % (Manual) 45, Lymphocytes % (Manual) 48, Monocytes % (Manual) 3, Eosinophils % (Manual) 4 H, Platelet Estimate Normal, RBC Morphology Normal, Sodium 138, Potassium 4.0, Chloride 106, Carbon Dioxide 23, Anion Gap 13.0, BUN 7, Creatinine 1.00, Estimated Creat Clear 58, E stimated GFR 56 L, Est GFR ( Amer) 68, Glucose 125 H, Lactate 1.4, Calcium 9.7, Total Bilirubin 0.2, AST 26, ALT 14, Alkaline Phosphatase 67, Total Protein 7.6, Albumin 4.1, Globulin 3.5 H, Albumin/Globulin Ratio 1.2, Lipase 82 06/11/25 14:21 06/11/25 14:21 Orders (Tests/Meds): ED MEDICATIONS Discontinued Medications Generic Name Dose Route Start Last Admin Trade Name Freq PRN Reason Stop Dose Admin Iopamidol 75 ml 06/11/25 15:03 06/11/25 15:04 Iopamidol-370 (76%);100ml Bottle IV 06/11/25 15:04 75 ml ONCE ONE Administration Ketorolac Tromethamine 15 mg 06/11/25 14:13 06/11/25 14:21 Ketorolac 30mg/Ml Vial IV 06/11/25 14:14 15 mg ONCE ONE Administration Ondansetron HCl 4 mg 06/11/25 14:13 06/11/25 14:21 Ondansetron 4mg/2ml Vial IV 06/11/25 14:14 4 mg ONCE ONE Administration Sodium Chloride 10 ml 06/11/25 15:03 06/11/25 15:04 Sodium Chloride 0.9% 10ml Syr (Rad Only) IV 06/11/25 15:04 10 ml ONCE ONE Administration ORDERS Category Date Time Status CT abdomen pelvis w con Stat Cat Scan 06/11/25 14:[address] lumbar spine wo con Stat Cat Scan 06/11/25 14:12 Completed Hip XR left minimum 2 views [XR hip LT 2-3V w/pelvis] Exams 06/11/25 14:12 Completed Stat Complete Blood Count Auto Diff Stat Lab 06/11/25 14:21 Completed Comprehensive Metabolic Panel Stat Lab 06/11/25 14:21 Completed Lactic Acid Stat Lab 06/11/25 14:21 Completed Lipase Stat Lab 06/11/25 14:21 Completed UA [Urinalysis and Microscopic] Stat Lab 06/11/25 14:00 Completed Medical Decision Narrative: 65-year-old female presents to the emergency department with left-sided flank pain back pain and left hip pain, along with nausea for several days, differential diagnosis to include but not limited to, acute UTI, acute pyelonephritis, acute lumbar sacral strain, osteoporotic pathological compression fracture, lumbar radiculopathy, nephrolithiasis, ureterolithiasis, diverticulitis, pancreatitis, intertrochanteric bursitis, hip strain/sprain, hip fracture, among others. I discussed this patient's case with the attending physician Dr. Lion Will obtain EKG, CT abdomen pelvis with contrast, CT lumbar spine without contrast, left hip and pelvic x-ray, CBC CMP, lactic acid level, lipase level, UA, will give 15 mg IV Toradol for pain and 4 mg of Zofran for nausea. UA is unremarkable, negative nitrites, negative leukocyte Estrace, trace hematuria. CBC is notable for mild leukocytosis at 11.6 Microscopic analysis of the patient's urine shows 3-5 epithelial cells trace bacteria occasional red cells, occasional white cells CMP is unremarkable I reviewed the patient's CT abdomen pelvis with contrast along with the corresponding radiologic report, constipation otherwise no acute abnormality. I reviewed the patient's CT lumbar spine without contrast along the corresponding radiologic report, no acute abnormality of the lumbar spine, mild multilevel degenerative disc disease. I reviewed the patient's left hip x-ray along with corresponding radiologic report, no acute started body of the hip. I discussed the results with the patient at the bedside, patient is in agreement with the current treatment plan/discharge plan, I will prescribe short course of methylprednisone Dosepak, for symptomatic relief, patient will continue take her anti-inflammatory medications, muscle relaxers at home as needed, I will prescribe additional muscle relaxer methocarbamol 750 mg PO PRN, as patient is unsure if she has any dantrolene left. I recommend patient take this medication as prescribed, take either or do not mix and match muscle relaxers. Patient has no red flag signs or symptoms of be consistent with cauda equina syndrome, she has multilevel degenerative disc disease I do think this is more musculoskeletal/degenerative disc disease because of patient symptomatology. Patient voiced understanding once again. And will return to the emergency room with any worsening signs or symptoms. And follow-up with her PCP in the upcoming days. <Jace Lion MD - Last Filed: 06/11/25 18:41> Vital Signs: 06/11/25 14:00 06/11/25 14:32 06/11/25 15:32 Temperature 98.3 F Temperature Source Oral Pulse Rate 67 65 Pulse Rate [Right Brachial] 78 Respiratory Rate 16 17 17 Blood Pressure 152/78 H 152/80 H Blood Pressure [Right Arm] 188/106 H Blood Pressure Mean 112 115 Blood Pressure Mean [Right Arm] 133 Blood Pressure Source Blood Pressure Source [Right Arm] Automatic Cuff Blood Pressure Position Blood Pressure Position [Right Arm] Sitting 02 Sat by Pulse Oximetry 96 98 100 Oxygen Delivery Method Room Air Room Air Room Air 06/11/25 16:43 Temperature 97.8 F Temperature Source Oral Pulse Rate 62 Pulse Rate [Right Brachial] Respiratory Rate 16 Blood Pressure 174/89 H Blood Pressure [Right Arm] Blood Pressure Mean Blood Pressure Mean [Right Arm] Blood Pressure Source Automatic Cuff Blood Pressure Source [Right Arm] Blood Pressure Position Sitting Blood Pressure Position [Right Arm] 02 Sat by Pulse Oximetry Oxygen Delivery Method Room Air Lab Data Lab Results 06/11/25 14:00: Urine Color Yellow, Urine Appearance Clear, Urine pH 7.0, Ur Specific [place] <= 1.005, Urine Protein Negative, Urine Glucose (UA) Negative, Urine Ketones Negative, Urine Blood Trace-i, Urine Nitrate Negative, Urine Bilirubin Negative, Urine Urobilinogen 0.2, Ur Leukocyte Esterase Negative, Urine RBC Occasional, Urine WBC Occasional, Ur Squamous Epith Cells 3-5, Urine Bacteria Trace 06/11/25 14:21: WBC 11.6 H, RBC 4.22, Hgb 13.3, Hct 41.4, MCV 98.1, MCH 31.5 H, MCHC 32.1, RDW 13.0, Plt Count 341, MPV 10.6 H, Neut % (Auto) 48.7, Lymph % (Auto) 43.3, [place] % (Auto) 5.2, Eos % (Auto) 1.5, Baso % (Auto) 0.8, Neut # (Auto) 5.7, Lymph # (Auto) 5.0 H, [place] # (Auto) 0.6, Eos # (Auto) 0.2, Baso # (Auto) 0.1, Total Counted 100, Neutrophils % (Manual) 45, Lymphocytes % (Manual) 48, Monocytes % (Manual) 3, Eosinophils % (Manual) 4 H, Platelet Estimate Normal, RBC Morphology Normal, Sodium 138, Potassium 4.0, Chloride 106, Carbon Dioxide 23, Anion Gap 13.0, BUN 7, Creatinine 1.00, Estimated Creat Clear 58, E stimated GFR 56 L, Est GFR ( Amer) 68, Glucose 125 H, Lactate 1.4, Calcium 9.7, Total Bilirubin 0.2, AST 26, ALT 14, Alkaline Phosphatase 67, Total Protein 7.6, Albumin 4.1, Globulin 3.5 H, Albumin/Globulin Ratio 1.2, Lipase 82 Orders (Tests/Meds): ED MEDICATIONS Discontinued Medications Generic Name Dose Route Start Last Admin Trade Name Freq PRN Reason Stop Dose Admin Iopamidol 75 ml 06/11/25 15:03 06/11/25 15:04 Iopamidol-370 (76%);100ml Bottle IV 06/11/25 15:04 75 ml ONCE ONE Administration Ketorolac Tromethamine 15 mg 06/11/25 14:13 06/11/25 14:21 Ketorolac 30mg/Ml Vial IV 06/11/25 14:14 15 mg ONCE ONE Administration Ondansetron HCl 4 mg 06/11/25 14:13 06/11/25 14:21 Ondansetron 4mg/2ml Vial IV 06/11/25 14:14 4 mg ONCE ONE Administration Sodium Chloride 10 ml 06/11/25 15:03 06/11/25 15:04 Sodium Chloride 0.9% 10ml Syr (Rad Only) IV 06/11/25 15:04 10 ml ONCE ONE Administration ORDERS Category Date Time Status CT abdomen pelvis w con Stat Cat Scan 06/11/25 14:[address] lumbar spine wo con Stat Cat Scan 06/11/25 14:12 Completed Hip XR left minimum 2 views [XR hip LT 2-3V w/pelvis] Exams 06/11/25 14:12 Completed Stat Complete Blood Count Auto Diff Stat Lab 06/11/25 14:21 Completed Comprehensive Metabolic Panel Stat Lab 06/11/25 14:21 Completed Lactic Acid Stat Lab 06/11/25 14:21 Completed Lipase Stat Lab 06/11/25 14:21 Completed UA [Urinalysis and Microscopic] Stat Lab 06/11/25 14:00 Completed Medical Decision Narrative: 65-year-old female presents to the emergency department with left-sided flank pain back pain and left hip pain, along with nausea for several days, differential diagnosis to include but not limited to, acute UTI, acute pyelonephritis, acute lumbar sacral strain, osteoporotic pathological compression fracture, lumbar radiculopathy, nephrolithiasis, ureterolithiasis, diverticulitis, pancreatitis, intertrochanteric bursitis, hip strain/sprain, hip fracture, among others. I discussed this patient's case with the attending physician Dr. Lion Will obtain EKG, CT abdomen pelvis with contrast, CT lumbar spine without contrast, left hip and pelvic x-ray, CBC CMP, lactic acid level, lipase level, UA, will give 15 mg IV Toradol for pain and 4 mg of Zofran for nausea. UA is unremarkable, negative nitrites, negative leukocyte Estrace, trace hematuria. CBC is notable for mild leukocytosis at 11.6 Microscopic analysis of the patient's urine shows 3-5 epithelial cells trace bacteria occasional red cells, occasional white cells CMP is unremarkable I reviewed the patient's CT abdomen pelvis with contrast along with the corresponding radiologic report, constipation otherwise no acute abnormality. I reviewed the patient's CT lumbar spine without contrast along the corresponding radiologic report, no acute abnormality of the lumbar spine, mild multilevel degenerative disc disease. I reviewed the patient's left hip x-ray along with corresponding radiologic report, no acute started body of the hip. I discussed the results with the patient at the bedside, patient is in agreement with the current treatment plan/discharge plan, I will prescribe short course of methylprednisone Dosepak, for symptomatic relief, patient will continue take her anti-inflammatory medications, muscle relaxers at home as needed, I will prescribe additional muscle relaxer methocarbamol 750 mg PO PRN, as patient is unsure if she has any dantrolene left. I recommend patient take this medication as prescribed, take either or do not mix and match muscle relaxers. Patient has no red flag signs or symptoms of be consistent with cauda equina syndrome, she has multilevel degenerative disc disease I do think this is more musculoskeletal/degenerative disc disease because of patient symptomatology. Patient voiced understanding once again. And will return to the emergency room with any worsening signs or symptoms. And follow-up with her PCP in the upcoming days. I was consulted by the TRISH, and we discussed the complexity of the problems being addressed. I approve the treatment and management plan for this patient's care in the emergency department, thus performing a substantive portion of the medical decision making. Jace Lion MD Critical Care <FELICITY Yao - Last Filed: 06/11/25 16:32> Critical Care Time Critical Care Time: No
[2025-06-11 14:00] VITALS: BP 188/106; PULSE 78; RESP 16; TEMP 36.8; O2SAT 96; BMI 24.3
[2025-06-11 14:08] LABS: Microscopic, Urine URINE MICROSCOPIC (MICROSCOPIC)
[2025-06-11 14:10] LABS: Bilirubin,Urine Negative (Negative); Color,Urine YELLOW (Yellow); Glucose,Urine (UA) Negative (Negative); Ketones,Urine Negative (Negative); Leukocyte Esterase,Urine Negative (Negative); PH,Urine 7.0 (5.0-8.5); Protein,Urine Negative (Negative); Specific Gravity, Urine <= 1.005 (1.005-1.030); Urobilinogen,Urine 0.2 EU/dl (0.2)
--- NOTE | 2025-06-11 14:11 | CT_ITS ---
FINAL REPORT TECHNIQUE: Thin section axial images are obtained through the abdomen and pelvis after intravenous contrast. Reconstruction images were obtained from the axial data. Exam was performed using dose reduction techniques. CLINICAL HISTORY: Left-sided flank, left-sided back/hip pain COMPARISON: None FINDINGS: LUNG BASES: Lung bases are clear. Heart size is normal. LIVER: Homogeneous. No focal lesion. GALLBLADDER/BILIARY SYSTEM: Gallbladder is mildly distended. No gallstones. No biliary dilatation. SPLEEN: Unremarkable. PANCREAS: Unremarkable. ADRENALS: Unremarkable. KIDNEYS/URETERS/BLADDER: No hydronephrosis, renal mass, or renal stone. Unremarkable urinary bladder. GI TRACT: No small bowel obstruction or dilatation. Appendix not visualized but no secondary signs of acute appendicitis. Large amount of retained stool. PELVIC ORGANS: Uterus absent. LYMPH NODES/RETROPERITONEUM/MESENTERY: No lymphadenopathy. No abdominal aortic aneurysm. ABDOMINAL WALL: The abdominal wall is intact. FREE FLUID: No ascites. BONES: No acute osseous abnormality. IMPRESSION: Constipation. Otherwise, no acute abnormality. Reviewed, Interpreted and Dictated by Soila Jane MD Transcribed by Clarisse Ly Authenticated and [facility]
--- NOTE | 2025-06-11 14:12 | XR_ITS ---
FINAL REPORT CLINICAL HISTORY: Left hip pain FINDINGS: An AP view of the pelvis and a frog leg view of the left hip were obtained. There is no prior exam for comparison. There is no acute fracture or dislocation. Joint space is preserved. Remaining osseous pelvis is without acute abnormality. Soft tissues are unremarkable. IMPRESSION: No acute osseous abnormality of the hip. Reviewed, Interpreted and Dictated by Soila Jane MD Transcribed by Clarisse Ly Authenticated and [facility][1]
--- NOTE | 2025-06-11 14:12 | CT_ITS ---
FINAL REPORT TECHNIQUE: Thin section axial images were obtained through the lumbar spine without contrast. Sagittal and coronal reconstruction images were obtained from the axial data. Exam was performed using dose reduction techniques. CLINICAL HISTORY: Left-sided back pain COMPARISON: None FINDINGS: There is no acute fracture or acute malalignment of the lumbar spine. Vertebral body height is preserved. There is very mild multilevel degenerative disease. There is no significant central stenosis. Paraspinal soft tissues are within normal limits. There is no paraspinal mass or fluid collection. IMPRESSION: No acute abnormality of the lumbar spine. Mild multilevel degenerative disease. Reviewed, Interpreted and Dictated by Soila Jane MD Transcribed by Clarisse Ly Authenticated and [facility]
--- OUTSIDE RECORDS SUMMARY | 2025-06-11 14:18 | XMS_ITS | Patient Health Record ---
Author Organization [facility] Address [address] [place], [place] Care Team Providers Care Architecture Consultant Name Role Phone Garrison Ovalles Primary Care Provider Bk Ferreira Unavailable [phone] Nadir Waite Unavailable [phone] Raul Vera Unavailable Unavailable Allergies No Known Allergies Results Component Value Reference Range Notes [facility] (Not yet re viewed by provider) Interpretation:Normal Performing Lab: Notes/Report: Normal [facility] (Not yet re viewed by provider) Interpretation:Normal Performing Lab: Notes/Report: Normal [facility] (Not yet re viewed by provider) Interpretation:Normal Performing Lab: Notes/Report: Normal Reason For Referral No Information Medications Medication SIG (Take, Route, Frequency, Duration) Notes Start Date End Date Status traMADol HCl 50 MG 1 tablet Orally EVERY SIX HOURS; Duration: 30 days 06/10/2025 06/25/2025 Active Losartan Potassium 100 MG 1 tablet Orally Once a day; Duration: 30 day(s) Active Medrol 4 MG as directed Orally Not-Taking Topamax 100 MG 1 tablet Orally Twice a day DUPLICATE Not-Taking Zanaflex 4 MG TAKE 1 TABLET BY MOUTH THREE TIMES DAILY NEEDED Orally Three times a day; Duration: 30 days Not-Taking levETIRAcetam 500 mg TAKE ONE TABLET BY MOUTH EVERY 12 HOURS; Duration: 30 Active Topiramate 200 MG TAKE 1 TABLET BY MOUTH TWICE DAILY Orally Twice a day; Duration: 90 days Active Baclofen 20 MG 1 tablet Orally twice a day; Duration: 30 days DUPLICATE Not-Taking Baclofen 20 MG TAKE 1 TABLET BY MOUTH TWICE A DAY 08/28/2018 Active Zanaflex 4 MG TAKE 1 TABLET BY MOUTH THREE TIMES DAILY NEEDED Active Metoprolol Tartrate 50 MG 1 tablet with food Orally Twice a day; Duration: 30 day(s) Active Topamax 100 MG 1 tablet Orally Twice a day; Duration: 30 DUPLICATE Not-Taking Baclofen 10 MG 1 tablet with food or milk Orally bid DUPLICATE Not-Taking Venlafaxine HCl ER 225 mg TAKE 1 TABLET BY MOUTH ONCE A DAY; Duration: 90 Active Medrol 4 MG as directed Orally TITRATE DOWN; Duration: 6 days 03/10/2021 Not-Taking Dantrolene Sodium 50 MG 1 capsule Orally Once a day; Duration: 90 days Active Immunizations Vaccine Route Administration Date Status Comme nts Influenza (split), 3 yrs and above Unknown 10/04/2016 O thers Influenza (split), 3 yrs and above Unknown 09/26/2017 O thers Influenza (split), 3 yrs and above Unknown 11/08/2017 O thers Influenza (split), 3 yrs and above Unknown 10/16/2018 O thers Influenza (split), 3 yrs and above Unknown 01/18/2021 R efused Influenza (split), 3 yrs and above Unknown 01/25/2021 R efused Influenza (split), 3 yrs and above Unknown 02/24/2021 R efused Influenza (split), 3 yrs and above Unknown 03/10/2021 R efused Influenza (split), 3 yrs and above Unknown 05/03/2021 R efused Influenza (split), 3 yrs and above Unknown 06/30/2021 R efused Influenza (split), 3 yrs and above Unknown 08/18/2021 R efused Influenza (split), 3 yrs and above Unknown 09/29/2021 R efused Influenza (split), 3 yrs and above Unknown 11/22/2021 R efused Influenza (split), 3 yrs and above Unknown 04/20/2022 R efused Influenza, unspecified formu lation (CPT 74045 Inactive) Unknown 09/09/2015 Pending Influenza, unspecified formu lation (CPT 32893 Inactive) Unknown 10/01/2015 Refused Influenza, unspecified formu lation (CPT 31765 Inactive) Unknown 01/01/2017 Administered Pneumococcal conjugate PCV 13 Unknown 01/18/2021 Refuse d Pneumococcal conjugate PCV 13 Unknown 01/25/2021 Refuse d Pneumococcal conjugate PCV 13 Unknown 02/24/2021 Refuse d Pneumococcal conjugate PCV 13 Unknown 03/10/2021 Refuse d Pneumococcal conjugate PCV 13 Unknown 05/03/2021 Refuse d Pneumococcal conjugate PCV 13 Unknown 08/18/2021 Refuse d Pneumococcal conjugate PCV 13 Unknown 09/29/2021 Refuse d Pneumococcal conjugate PCV 13 Unknown 11/22/2021 Refuse d Pneumococcal unspecified Unknown 09/09/2015 Pending Pneumococcal unspecified Unknown 10/01/2015 Refused Pneumococcal unspecified Unknown 10/04/2016 Pending Pneumococcal unspecified Unknown 12/28/2016 Pending Pneumococcal unspecified Unknown 09/20/2017 Pending Pneumococcal unspecified Unknown 11/08/2017 Refused Pneumococcal unspecified Unknown 10/15/2018 Pending Social History Tobacco use other than smoking: Question Answer Notes Are you an other tobacco user? No Problems Problem Type SNOMED Code ICD Code Onset Dates Problem Status W/U Status Risk Notes Problem Chronic pain (71249997) Other chronic pain (G89.29) Active confirmed Problem Chronic pain syndrome (443356548) Chronic pain syndrome (G89.4) Active confirmed Problem Cervical spondylosis without myelopathy (629782507) Spondylosis without myelopathy or radiculopathy, cervical region (M47.812) Active confirmed Problem Lumbosacral spondylosis without myelopathy (90862733) Spondylosis without myelopathy or radiculopathy, lumbar region (M47.816) Active confirmed Problem Cervical spondylosis without myelopathy (079662072) Other spondylosis, cervical region (M47.892) Active confirmed Problem Displacement of cervical intervertebral disc without myelopathy (76981093) Other cervical disc displacement, unspecified cervical region (M50.20) Active confirmed Problem Sacrococcygeal disorders, not elsewhere classified (M53.3) Active confirmed Problem Occipital neuralgia (76402579) Occipital neuralgia (M54.81) Active confirmed Problem Myositis (04283715) Other myositis, left shoulder (M60.812) Active confirmed Problem Myalgia (90948594) Myalgia (M79.1) Active confirmed Problem Neuralgia (04149994) Neuralgia and neuritis, unspecified (M79.2) Active confirmed Problem Headache (10497699) Headache (R51) Active confirmed Problem Cervical spondylosis without myelopathy (928278225) Cervical spondylosis without myelopathy (M47.812) Active confirmed Problem Occipital neuralgia (56151201) Occipital neuralgia of right side (M54.81) Active confirmed Problem Spasm (90492371) Cervical paraspinal muscle spasm (M62.838) Active confirmed Problem Migraine (59564922) Migraine (G43.909) Active confirmed Problem Cervical radiculopathy (21953260) Cervical radiculopathy (M54.12) Active confirmed Problem Lumbar radicular pain (0977551972) Lumbar radicular pain (M54.16) Active confirmed Problem Cervical spondylosis (347226482) Cervical spondylosis (M47.812) Active confirmed Problem Occipital neuralgia (25144400) Occipital neuralgia of left side (M54.81) Active confirmed Problem Mononeuritis (75658967) Mononeuritis (G58.9) Active confirmed Problem Cervicogenic headache (687063900) Cervicogenic headache (R51) Active confirmed Problem Cervical dystonia (16813148) Cervical dystonia (G24.3) Active confirmed Problem Atypical neuralgia (335290546) Atypical neuralgia (M79.2) Active confirmed Problem Displacement of lumbar intervertebral disc without myelopathy (40878589) Disc displacement, lumbar (M51.26) Active confirmed Problem Scapulalgia (65636476) Scapulalgia (M89.8X1) Active confirmed Problem Cervicogenic headache (695918107) Cervicogenic headache (R51.9) Active confirmed Problem Cerebral aneurysm (286161091) Cerebral aneurysm (I67.1) Active confirmed Vital Signs Heart Rate 64 /min 05/26/2025 Blood pressure diastolic 70 mm Hg 05/26/2025 Oximetry 98 % 05/26/2025 Height 60 in 05/26/2025 Blood pressure systolic 143 mm Hg 05/26/2025 Weight 160 lbs 05/26/2025 BMI 31.24 kg/m2 05/26/2025 Encounters Encounter Location Date Provider Diagnosis [facility] [address] [place] [address] 06/19/2024 Bk Ferreira Myalgia M79.1 [facility] [address] [place] [address] 07/24/2024 Bk Ferreira Spondylosis without myelopathy or radiculopathy, cervical region M47.812 and Cervical dystonia G24.3 [facility] [address] [place] [address] 08/21/2024 Bk Klickovich Spondylosis without myelopathy or radiculopathy, cervical region M47.812 [facility] [address] [place] [address] 09/18/2024 Bk Klickovich Myalgia, other site M79.18 [facility] [address] [place] [address] 11/06/2024 Bk Klickovich Spondylosis without myelopathy or radiculopathy, cervical region M47.812 [facility] [address] [place] [address] 12/08/2024 Bk Klickovich Spondylosis without myelopathy or radiculopathy, cervical region M47.812 [facility] [address] [place] [address] 01/06/2025 Bk Klickovich Spondylosis without myelopathy or radiculopathy, cervical region M47.812 [facility] [address] [place] [address] 02/03/2025 Bk Klickovich Spondylosis without myelopathy or radiculopathy, cervical region M47.812 [facility] [address] [place] [address] 03/03/2025 Bk Klickovich Myalgia, other site M79.18 [facility] [address] [place] [address] 03/10/2025 Kb Klickovich Spondylosis without myelopathy or radiculopathy, cervical region M47.812 [facility] [address] [place] [address] 03/24/2025 Bk Klickovich Spondylosis without myelopathy or radiculopathy, cervical region M47.812 and Sacrococcygeal disorders, not elsewhere classified M53.3 [facility] [address] [place] [address] 03/31/2025 Bk Jhon Sacrococcygeal disorders, not elsewhere classified M53.3 [facility] [address] [place] [address] 04/07/2025 Bk Jhon Spondylosis without myelopathy or radiculopathy, cervical region M47.812 [facility] [address] [place] [address] 04/21/2025 Bk Luispatitolorraine Spondylosis without myelopathy or radiculopathy, cervical region M47.812 [facility] [address] [place] [address] 05/05/2025 Bk Luisickakin Spondylosis without myelopathy or radiculopathy, cervical region M47.812 [facility] [address] [place] [address] 05/26/2025 Bk Jhon Spondylosis without myelopathy or radiculopathy, cervical region M47.812 ; Cervical dystonia G24.3 and Cervical spondylosis M47.812 [facility] [address] [place] [address] 06/19/2024 Bk Ferreira [facility] [address] [place] [address] 06/19/2024 Bk Jhon Spondylosis without myelopathy or radiculopathy, cervical region M47.812 [facility] [address] [place] [address] 07/02/2024 Bk Atwood [facility] [address] [place] [address] 07/24/2024 Bk Jhon Spondylosis without myelopathy or radiculopathy, cervical region M47.812 [facility] [address] [place] [address] 08/21/2024 Bk Ferreira Spondylosis without myelopathy or radiculopathy, cervical region M47.812 [facility] [address] [place] [address] 09/22/2024 Bk Smithickhemah Spondylosis without myelopathy or radiculopathy, cervical region M47.812 [facility] [address] [place] [address] 10/02/2024 Bk Luisickakin Spondylosis without myelopathy or radiculopathy, cervical region M47.812 [facility] [address] [place] [address] 12/08/2024 Bk Smithickakin Spondylosis without myelopathy or radiculopathy, cervical region M47.812 [facility] [address] [place] [address] 01/06/2025 Bk Luisickakin Spondylosis without myelopathy or radiculopathy, cervical region M47.812 [facility] [address] [place] [address] 02/03/2025 Bk Ferreira Spondylosis without myelopathy or radiculopathy, cervical region M47.812 [facility] [address] [place] [address] 03/02/2025 Bk Ferreira [facility] [address] [place] [address] 03/10/2025 Bk Smithickakin Spondylosis without myelopathy or radiculopathy, cervical region M47.812 [facility] [address] [place] [address] 03/23/2025 Bk Ferreira [facility] [address] [place] [address] 04/07/2025 Bk Smithickovich Spondylosis without myelopathy or radiculopathy, cervical region M47.812 [facility] [address] [place] [address] 05/05/2025 Bk Klickoviclorraine Spondylosis without myelopathy or radiculopathy, cervical region M47.812 [facility] [address] [place] [address] 05/26/2025 Bk Luisickhemah Spondylosis without myelopathy or radiculopathy, cervical region M47.812 Assessments Encounter Date Diagnosis (ICD Code) Assessment Notes Treatment Notes Treatment Clinical Notes Section Notes 09/18/2024 Myalgia, other site (ICD-10 - M79.18) 09/22/2024 Spondylosis without myelopathy or radiculopathy, cervical region (ICD-10 - M47.812) 10/02/2024 Spondylosis without myelopathy or radiculopathy, cervical region (ICD-10 - M47.812) 11/06/2024 Spondylosis without myelopathy or radiculopathy, cervical region (ICD-10 - M47.812) 12/08/2024 Spondylosis without myelopathy or radiculopathy, cervical region (ICD-10 - M47.812) 12/08/2024 Spondylosis without myelopathy or radiculopathy, cervical region (ICD-10 - M47.812) 01/06/2025 Spondylosis without myelopathy or radiculopathy, cervical region (ICD-10 - M47.812) 01/06/2025 Spondylosis without myelopathy or radiculopathy, cervical region (ICD-10 - M47.812) 02/03/2025 Spondylosis without myelopathy or radiculopathy, cervical region (ICD-10 - M47.812) 02/03/2025 Spondylosis without myelopathy or radiculopathy, cervical region (ICD-10 - M47.812) 03/03/2025 Myalgia, other site (ICD-10 - M79.18) 03/10/2025 Spondylosis without myelopathy or radiculopathy, cervical region (ICD-10 - M47.812) TRAMADOL, DNF 03/11/25 03/10/2025 Spondylosis without myelopathy or radiculopathy, cervical region (ICD-10 - M47.812) 03/24/2025 Spondylosis without myelopathy or radiculopathy, cervical region (ICD-10 - M47.812) 06/19/2024 Myalgia (ICD-10 - M79.1) 06/19/2024 Spondylosis without myelopathy or radiculopathy, cervical region (ICD-10 - M47.812) 07/24/2024 Spondylosis without myelopathy or radiculopathy, cervical region (ICD-10 - M47.812) 07/24/2024 Cervical dystonia (ICD-10 - G24.3) 07/24/2024 Spondylosis without myelopathy or radiculopathy, cervical region (ICD-10 - M47.812) 08/21/2024 Spondylosis without myelopathy or radiculopathy, cervical region (ICD-10 - M47.812) TRAMADOL, MAY FILL TODAY 08/21/2024 Spondylosis without myelopathy or radiculopathy, cervical region (ICD-10 - M47.812) 03/31/2025 Sacrococcygeal disorders, not elsewhere classified (ICD-10 - M53.3) 04/07/2025 Spondylosis without myelopathy or radiculopathy, cervical region (ICD-10 - M47.812) TRAMADOL, DNF 04/10/2025 04/07/2025 Spondylosis without myelopathy or radiculopathy, cervical region (ICD-10 - M47.812) 04/21/2025 Spondylosis without myelopathy or radiculopathy, cervical region (ICD-10 - M47.812) 05/05/2025 Spondylosis without myelopathy or radiculopathy, cervical region (ICD-10 - M47.812) TRAMADOL, DNF 05/10/2025 05/05/2025 Spondylosis without myelopathy or radiculopathy, cervical region (ICD-10 - M47.812) 05/26/2025 Spondylosis without myelopathy or radiculopathy, cervical region (ICD-10 - M47.812) 05/26/2025 Spondylosis without myelopathy or radiculopathy, cervical region (ICD-10 - M47.812) 05/26/2025 Cervical dystonia (ICD-10 - G24.3) 03/24/2025 Sacrococcygeal disorders, not elsewhere classified (ICD-10 - M53.3) 05/26/2025 Cervical spondylosis (ICD-10 - M47.812) 07/24/2024 Other Patient requires opioid medication to effectively manage their allowed condition. The opioid medication helps improve the patient's pain control and ability to function. Patient requires monitoring for appropriate opioid medication use with routine urine drug screens. Screening will be performed based on risk level unless a clinical need arises for more frequent testing to confirm treatment compliance. Recent UDS and ROLANDO reviewed. The patient was counseled on the appropriate use of the opioid medication, its potential dangers and the responsibilities that go along with being prescribed opioid medications including safe storage, use and disposal of the medication. Patient was also counseled on the adverse effects of long-term opioid use including hyperalgesia, tolerance, decreased immune function, and changes to the body's natural hormones. The patient also understands the potential risks for respiratory depression especially if the medication is combined with other central nervous system depressants such as benzodiazepines or alcohol. Patient reports that PCP added small dose of Venlafaxine to the ER we are prescribing. She states that this has been helpful. Plan Of Treatment Pending Test Test Name Order Date MRI : Shoulder, left 05/27/2019 MRI : Lumbar without contrast 03/10/2021 [facility] 06/21/2017 [facility] 02/28/2018 [facility] 07/18/2018 [facility] 12/28/2022 [facility] 04/05/2023 [facility] 07/24/2023 [facility] 11/20/2023 [facility] 02/21/2024 MRI CERVICAL SPINE WO CONTRAST 7 MRI CERVICAL SPINE WO CONTRAST 9 MRI CERVICAL SPINE WO CONTRAST 2 [facility] 06/03/2024 [facility] 09/18/2024 [facility] 01/06/2025 [facility] 03/24/2025 Next Appt Details Provider Name:Bk Alford amirahchip, 06/30/2025 08:30:00 AM, [address] [place], [address], Insurance Providers Payer Name Payer Address Payer Phone Subscriber Number Group Number Insured Name Patient Relationship to Insured Coverage Start Date Coverage End Date [employer] Don [address] [place] [address] [id number] Desirae Buchanan Self - patient is the insured 2 Medicare CGS Administrators [address] [place] [phone] [id number] Desirae Buchanan Self - patient is the insured 5 [employer] [address] [address] [facility] [place] [address] [phone] [id number] Desirae Buchanan Self - patient is the insured 5 Medical (General) History Medical History History ICD Code Hysterectomy oopherectomy Surgical History Surgery Date(Month/Year) Hysterectomy Oopherectomy
--- OUTSIDE RECORDS SUMMARY | 2025-06-11 14:18 | XMS_ITS | Clinical Summary ---
Author Organization Healthcare Address [address] [id number] Care Team Providers Care Pyrotechnician Name Role Phone Garrison Ovalles MD Primary Care Provider Social History Tobacco Use Types Packs/Day Years Used Date Smoking Tobacco: Never Assessed Comments Unknown Sex and Gender Information Value Date Recorded Sex Assigned at Not on file Legal Sex Female 7:37 PM EDT Gender Identity Not on file Sexual Orientation Not on file Plan of Treatment Health Maintenance Due Date Last Done Comments [facility]-Depression Screening 1961 [facility]-Infant/Child/Adol SDOH Screenings 1961 [facility]- SDOH Screenings 1979 [facility]-Adult SDOH Screenings 1979 [facility]-Pap Smear 1982 [facility]-Cervical Cancer Screening 1991 [facility]-HPV/Cotest 1991 CT Colonography 2006 Colonoscopy 2006 FIT-DNA 2006 FIT 2006 FOBT 2006 Sigmoidoscopy 2006 [facility]-Colorectal Cancer Screening 2006 [facility]-Pneumococcal Vaccine: 50+ Years (1 of 1 - PCV) 2011 [facility]-Zoster Vaccines (1 of 2) 2011 [facility]-DTaP,Tdap,and Td Vaccines (2 - Td or Tdap) 01/16/2024 01/15/2014 [id number] Vaccine (1 - 2023- season) 2024 [facility]-Influenza Vaccine (#1) 07/13/202508/19, 08/08/2017, 01/01/2017, Additional history exists [facility]-RSV Vaccine: 60+ Years or (1 - 1-dose 75+ series) 2036 HPV Vaccines Aged Out No longer eligi ble based on patient's age to complete this topic [facility]-HIB Vaccines Aged Out No longer e ligible based on patient's age to complete this topic [facility]-Hepatitis A Vaccines Aged Out No longer eligible based on patient's age to complete this topic [facility]-IPV Vaccines Aged Out No longer e ligible based on patient's age to complete this topic [facility]-Rotavirus Vaccines Aged Out No lo nger eligible based on patient's age to complete this topic Care Teams Pyrotechnician Relationship Specialty Start Date End Date Garrison Ovalles MD [address] [place] [address] PCP - General 03/25/21
--- OUTSIDE RECORDS SUMMARY | 2025-06-11 14:18 | XMS_ITS | Clinical Summary ---
Author Organization [facility] Address [address] [place] [address] Care Team Providers Care [employer] Marketing Internship Name Role Phone Rasheeda Howard PA-C Primary Care Provider [phone] Allergies No known active allergies Medications traMADol (ULTRAM) 50 MG tablet tramadol 50 mg tablet Every six hours PRN 4 Active tiZANidine (ZANAFLEX) 4 MG tablet tizanidine 4 mg tablet Four times a day Active topiramate (TOPAMAX) 100 MG tablet Topamax 100 mg tablet Two times a day 9 Active venlafaxine XR (EFFEXOR XR) 150 MG 24 hr capsule Effexor XR 150 mg capsule,extende d release Take 1 capsule every day by oral route. Active Active Problems Problem Noted Date Diagnosed Date Left tubo-ovarian mass 01/08/2019 LGSIL Pap smear of vagina 01/08/2019 LLQ pain 01/08/2019 Family History Medical History Relation Name Comments Heart disease Father Hypertension Father Breast cancer Mother possible? Hypertension Mother Relation Name Status Comments Father Mother Social History Tobacco Use Types Packs/Day Years [...] on file Sexual Orientation Not on file Last Filed Vital Signs Vital Sign Reading Time Taken Comments Blood Pressure 145/77 02/13/2019 3:32 PM EDT Pulse 90 02/13/2019 3:32 PM EDT Temperature 36.9 C (98.4 F) 02/13/2019 3:32 PM EDT Respiratory Rate 12 02/13/2019 3:32 PM EDT Oxygen Saturation 98% 02/13/2019 3:32 PM EDT Inhaled Oxygen Concentration - - Weight 78 kg (172 lb) 02/13/2019 3:32 PM EDT Height 152.4 cm (5') 01/08/2019 9:29 AM EST Body Mass Index 33.59 01/08/2019 9:29 AM EST Plan of Treatment Health Maintenance Due Date Last Done Comments Annual Gynecologic Pelvic and Breast Exam 1960 TDAP/TD VACCINES (1 - Tdap) 1980 MAMMOGRAM 2001 COLOGUARD 2006 COLON CANCER SCREENING 5 YEAR SIGMOIDOSCOPY 2006 COLONOSCOPY [address] CANCER SCREENING [address] COLONOGRAPHY 2006 FECAL OCCULT BLOOD TEST 2006 FIT Testing (1 year) 2006 Pneumococcal Vaccine 50+ (1 of 1 - PCV) 2011 ZOSTER VACCINE (1 of 2) 2011 ANNUAL PHYSICAL 01/08/2019 HEPATITIS C SCREENING 01/08/2019 COVID-19 Vaccine (1 - 2023-25 season) 2024 INFLUENZA VACCINE 08/12/2025 08/19/2018 Insurance [facility] PPO Care Teams Sports Marketing Internship Relationship Specialty Start Date End Date Rasheeda Howard PA-C [address] [place] [address] PCP - General Physician Veneer Taping Machine Offbearer 12/24/18
[2025-06-11] MEDS: KETOROLAC 30MG/ML VIAL 15 MG IV (14:21)
[2025-06-11] MEDS: ONDANSETRON 4MG/2ML VIAL 4 MG IV (14:21)
[2025-06-11 14:30] LABS: Hematocrit 41.4 % (37.0-47.0); Hemoglobin 13.3 g/dL (12.2-16.2); Immature Granulocytes % 0.5 %; Mean Corpuscular HGB Conc 32.1 g/dL (31.8-35.4); Mean Corpuscular Hemoglobin 31.5 pg (27.0-31.2); Mean Corpuscular Volume 98.1 fl (81-99); Nucleated Red Blood Cells % 0 %; Platelet Count 341 K/mm3 (142-424); Red Blood Count 4.22 M/mm3 (4.20-5.40); Red Cell Distribution Width-SD 46.5 fL; White Blood Count 11.6 K/mm3 (4.8-10.8)
[2025-06-11 14:32] VITALS: BP 152/78; PULSE 67; RESP 17; O2SAT 98
[2025-06-11 14:42] LABS: Bacteria,Urine Trace /lpf; RBC,Urine Occasional #/hpf (0-3); WBC,Urine Occasional #/hpf (0-3)
--- NOTE | 2025-06-11 14:43 | ECG_ITS ---
APPROVED REPORT Exam: Resting ECG HR:65 bpm ECG Measurements Heart Rate 65 AXES [place] 119 P -80 QRSd 85 QRS 62 QT 411 T 70 QTc 423 Conclusion JUNCTIONAL RHYTHM WITH OCCASIONAL SUPRAVENTRICULAR PREMATURE COMPLEXES ABNORMAL RHYTHM ECG UNCONFIRMED REPORT Normal sinus rhythm. No ST elevation or depression. Inverted P waves in 2, 3, aVF, V3, V4, V5 and V6 Electronically signed by : GRIFFIN YOU, 06/11/2025 16:13:52
[2025-06-11 14:46] LABS: Albumin Level 4.1 g/dl (3.5-5.0); Chloride 106 mmol/L (98-107); Potassium 4.0 mmoL/L (3.5-5.1); Sodium 138 mmol/L (136-145)
[2025-06-11 14:48] LABS: Blood Urea Nitrogen 7 mg/dl (7-17); Creatinine Clearance Estimated 58 mL/min (50-200); Creatinine,Serum 1.00 mg/dl (0.52-1.04); Estimated Glomerular Filt Rate 56 ml/min (>60); GFR (African American) 68 ML/MIN (>60)
[2025-06-11 14:49] LABS: Alanine Aminotransferase 14 U/L (12-78); Albumin/Globulin Ratio 1.2 (1.1-1.8); Alkaline Phosphatase 67 U/L (38-126); Anion Gap 13.0 mEq/L (5-15); Aspartate Amino Transferase 26 U/L (14-36); Bilirubin,Total 0.2 mg/dl (0.2-1.3); Calcium 9.7 mg/dl (8.4-10.2); Carbon Dioxide 23 mmol/L (22.0-30.0); Globulin 3.5 g/dL (1.3-3.2); Glucose 125 mg/dl (74-100); Lipase 82 U/L (23-300); Total Protein,Serum 7.6 g/dl (6.3-8.2)
[2025-06-11 14:58] LABS: RBC Morphology Normal; Total Cells Counted 100
[2025-06-11] MEDS: IOPAMIDOL-370 (76%);100ML BOTTLE 75 ML IV (15:04)
[2025-06-11] MEDS: SODIUM CHLORIDE 0.9% 10ML SYR (RAD ONLY) 10 ML IV (15:04)
[2025-06-11 15:32] VITALS: BP 152/80; PULSE 65; RESP 17; O2SAT 100
[2025-06-11 16:43] VITALS: BP 174/89; PULSE 62; RESP 16; TEMP 36.6; O2SAT 99
== END 2025-06-11 16:44 | disposition home or self-care (01) ==
PROVIDERS: Physician Assistant; Emergency Provider Student in an Organized Health Care Education/Training Program; PCP Internal Medicine
DX: M51.362 Other intervertebral disc degeneration, lumbar region with discogenic back pain and lower extremity pain (principal); S39.012A Strain of muscle, fascia and tendon of lower back, initial encounter; F17.210 Nicotine dependence, cigarettes, uncomplicated; X58.XXXA Exposure to other specified factors, initial encounter
CPT/HCPCS: 72131; 73502; 74177; 80053; 81001; 83605; 83690; 85007; 85025; 85027; 93005; 96374; 96375; 99285; J1885; J2405; Q9967